=== PATIENT | female | born 1950 | race Caucasian/White ===

== ENCOUNTER → 2017-01-26 | Outpatient (CLI) | payer BC ==
[2015-04-12 16:13] VITALS: BP 130/88
[~2017-01-26] MED LIST: CRESTOR40 MG PO; GABA300S PO; LOSA25TA PO; [UNRECOGNIZED DRUG - CODE] MC
--- NOTE | 2017-01-26 12:45 | RAD ---
CT of the chest without contrast, 01/26/2017: History: Pulmonary fibrosis Multidetector CT imaging was performed in the supine position in inspiration and expiration. Routine high-resolution reconstructions were produced. There is mild calcific plaquing of the thoracic aorta and its branches including the coronary arteries. The thoracic aorta is of normal caliber. Several small mediastinal lymph nodes are present without evidence of pathologic enlargement. Densities at the GE junction level are compatible with the history of previous hiatal hernia surgery. The inspiration views demonstrate scattered coarse linear opacities in both lungs compatible with scars. These are most prominent in the lung bases in the periphery of the lungs. No pulmonary nodularity or mass is evident. No bronchiectasis is seen. No air trapping is evident on the expiration views. There is no evidence of pleural fluid. IMPRESSION: 1. Mild scattered bilateral parenchymal scars. 2. Coronary artery disease. 3. No acute abnormality is detected. PQRS Compliance Statement: One or more of the following individualized dose reduction techniques were utilized for this examination: 1. Automated exposure control 2. Adjustment of the mA and/or kV according to patient size 3. Use of iterative reconstruction technique
== END | disposition home or self-care (01) ==
LOC: CT 08:57
DX: J84.10 Pulmonary fibrosis, unspecified (principal); J98.4 Other disorders of lung; I70.0 Atherosclerosis of aorta; I25.10 Atherosclerotic heart disease of native coronary artery without angina pectoris
CPT/HCPCS: 71250

== ENCOUNTER → 2017-03-06 | Outpatient (CLI) | payer BC ==
[2015-04-12 16:13] VITALS: BP 130/88
--- NOTE | 2017-03-06 18:37 | RAD ---
CT maxillofacial without contrast History: Sinus infection facial fullness and pressure in eyes Axial helical images of the face including paranasal sinuses orbits and mandible were obtained without contrast. Axial, sagittal and coronal reconstruction was performed. The nasal septum is moderately deviated to the left. The ostiomeatal complexes are narrow but patent. The paranasal sinuses are clear. The visualized osseous structures appear intact. The orbits appear normal. Impression: No acute findings. PQRS Compliance Statement: One or more of the following individualized dose reduction techniques were utilized for this examination: 1. Automated exposure control 2. Adjustment of the mA and/or kV according to patient size 3. Use of iterative reconstruction technique Electronically signed by: Tr Quintero III, MD (03/06/2017 6:34 PM) [facility]
== END | disposition home or self-care (01) ==
LOC: CT 16:58
PROVIDERS: ATTEND Nurse Practitioner Family
DX: J32.8 Other chronic sinusitis (principal); J34.2 Deviated nasal septum
CPT/HCPCS: 70486

== ENCOUNTER 2017-05-27 10:47 | Emergency (ER) | payer OTHER, BC ==
--- NOTE | 2017-05-27 11:49 | RAD ---
3 view right rib detail series and PA view chest x-ray History: Fell on the right side on May 26, 2017 with right-sided rib pain. Comparison: Chest x-ray dated December 16, 2015. Findings: No acute right rib cage fracture is evident. Chronic scarring of the left lung base is seen. No acute lung infiltrate or pleural effusion or pulmonary edema or pneumothorax is seen. The heart size and pulmonary vasculature and mediastinum and both jerry are stable. IMPRESSION: No acute right rib fracture.
--- NOTE | 2017-05-27 12:00 | PHYS DOC ---
Past History Past Medical History: Asthma, Other Past Surgical History: Hysterectomy, Other Alcohol Use: None Drug Use: None Adult General Chief Complaint Chief Complaint: MECHANICAL FALL HPI HPI 66-year-old female patient states she had an accidental fall from a standing position while visiting her at hospital yesterday and injured her right side of chest wall without loss of consciousness and other injuries. Patient rated her pain moderate and states she doesn't want to take pain medication. Patient states hospital staff recommended she is coming to ER for evaluation. Patient denies fever and chills, shortness of breath, focal neuro deficit, headache, abdominal pain. Review of Systems Review of Systems Constitutional: Denies fever or chills [] Eyes: Denies change in visual acuity, redness, or eye pain [] HENT: Denies nasal congestion or sore throat [] Respiratory: Denies cough or shortness of breath [] Cardiovascular: No additional information not addressed in HPI [] GI: Denies abdominal pain, nausea, vomiting, bloody stools or diarrhea [] : Denies dysuria or hematuria [] Musculoskeletal: Denies back pain or joint pain Integument: Denies rash or skin lesions [] Neurologic: Denies headache, focal weakness or sensory changes [] Endocrine: Denies polyuria or polydipsia [] All other systems were reviewed and found to be within normal limits, except as documented in this note. Allergies Allergies Allergies Coded Allergies Type Severity Reaction Last Updated Verified aspirin Allergy Severe 10/31/13 Yes Penicillins Allergy Mild 10/31/13 Yes tramadol Allergy Mild 10/31/13 Yes Uncoded Allergies Type Severity Reaction Last Updated Verified ERYTHRMYOCIN Allergy Unknown 12/17/14 Physical Exam Physical Exam Constitutional: Well developed, well nourished, mild distress, non-toxic appearance. [] HENT: Normocephalic, atraumatic, bilateral external ears normal, oropharynx moist, no oral exudates, nose normal. [] Eyes: PERRLA, EOMI, conjunctiva normal, no discharge. [] Neck: Normal range of motion, no tenderness, supple, no stridor. [] Cardiovascular:Heart rate regular rhythm, no murmur [] Lungs & Thorax: Bilateral breath sounds clear to auscultation , chest wall without deformity or crepitation or subcutaneous emphysema, mild right lateral chest wall tenderness without contusion or ecchymosis or breast injury[] Abdomen: Bowel sounds normal, soft, no tenderness, no masses, no pulsatile masses. [] Skin: Warm, dry, no erythema, no rash. [] Back: No tenderness, no CVA tenderness. [] Extremities: No tenderness, no cyanosis, no clubbing, ROM intact, no edema. [] Neurologic: Alert and oriented X 3, normal motor function, normal sensory function, no focal deficits noted. [] Psychologic: Affect normal, judgement normal, mood normal. [] Current Patient Data Vital Signs Vital Signs Date Time Temp Pulse Resp B/P (MAP) Pulse Ox O2 Delivery O2 Flow Rate FiO2 05/27/17 10:55 98.0 105 16 97 Room Air EKG EKG [] Radiology/Procedures Radiology/Procedures [] Course & Med Decision Making Course & Med Decision Making Pertinent Imaging studies reviewed. (See chart for details) Evaluation of patient in ER showed 66-year-old male patient with a fall yesterday and injury to right side of chest wall. Patient had unremarkable physical exam and x-ray of chest and right rib. Patient did not want to have pain medication in ER. Dragon Disclaimer Dragon Disclaimer This electronic medical record was generated, in whole or in part, using a voice recognition dictation system. Departure Departure: Impression: Primary Impression: Chest wall injury Additional Impression: Fall Disposition: HOME, SELF-CARE (At 1159) Condition: STABLE Referrals: HERNANDO HUSSEIN MD (PCP) Patient Instructions: Chest Wall Pain Additional Instructions: Apply ice on and affected area Follow-up with your primary care physician in 3-5 days Return to ER if not getting better Take Tylenol as needed for pain Problem Qualifiers BANDAR HOANG MD May 27, 2017 12:00
[2017-05-27 12:06] VITALS: BP 104/67
== END 2017-05-27 12:06 | disposition home or self-care (01) ==
LOC: ER 10:47
DX: S29.9XXA Unspecified injury of thorax, initial encounter (principal); J45.909 Unspecified asthma, uncomplicated; Z88.0 Allergy status to penicillin; Z88.6 Allergy status to analgesic agent; W19.XXXA Unspecified fall, initial encounter; Y93.89 Activity, other specified; Y99.8 Other external cause status; Y92.238 Other place in hospital as the place of occurrence of the external cause
CPT/HCPCS: 71101; 99284

== ENCOUNTER → 2017-07-27 | Outpatient (CLI) | payer BC ==
--- NOTE | 2017-07-27 13:45 | RAD ---
Chest, 2 views, 07/27/2017: HISTORY: Cough The heart size and pulmonary vascularity are normal. There is linear scarring in the left base. No acute infiltrate is seen. There is no evidence of pleural fluid. Mild spurring is present in the spine. IMPRESSION: No acute cardiopulmonary abnormality is detected. Electronically signed by: Ralph Elizabeth MD (07/27/2017 1:42 PM) [facility]
== END | disposition home or self-care (01) ==
LOC: DXRAD 11:23
PROVIDERS: ATTEND Physician Assistant
DX: R05 Cough (principal); E03.9 Hypothyroidism, unspecified
CPT/HCPCS: 71046

== ENCOUNTER → 2017-08-23 | Outpatient (CLI) | payer BC ==
--- NOTE | 2017-08-23 16:31 | RAD ---
Pelvis with left hip, 3 views, 08/23/2017: HISTORY: Hip pain No fracture or dislocation is identified. The hip joint spaces are fairly well preserved with only mild marginal spurring. There is mild degenerative change at the symphysis pubis.The periarticular soft tissues are unremarkable. IMPRESSION: No acute pelvic or left hip abnormality is detected. Electronically signed by: Ralph Elizabeth MD (08/23/2017 4:27 PM) [facility]
== END | disposition home or self-care (01) ==
LOC: DXRAD 11:00
PROVIDERS: ATTEND Nurse Practitioner Family
DX: M76.892 Other specified enthesopathies of left lower limb, excluding foot (principal)
CPT/HCPCS: 73502

== ENCOUNTER → 2017-09-13 | Outpatient (CLI) | payer BC ==
--- NOTE | 2017-09-13 12:23 | RAD ---
DATE: 09/13/2017 EXAM: MAMMO MAR SCREENING BILATERAL HISTORY: Routine screening COMPARISON: 03/18/2013, 04/16/2012, 04/11/2011 This study was interpreted with the benefit of Computerized Aided Detection (CAD). The breast parenchyma shows scattered fibroglandular densities. Breast parenchyma level B. FINDINGS: 2-D and 3-D tomosynthesis imaging was performed in CC and MLO projections. In the medial aspect of the left breast there is a cluster of microcalcifications which contains 2 breast biopsy markers. On the previous study there was a low density peanut shaped lesion in this region which probably represented an oil cyst or area of fat necrosis which has been biopsied in the interval. Correlation with the previous biopsy results is suggested. There are couple of other small smooth rounded nodules in the left breast which demonstrate rim-like calcifications compatible with small oil cysts. There are additional small smooth nodules in the lateral aspects of both breasts which have a benign appearance and probably represent lymph nodes or fibroadenomas. These are better defined on the current 3-D images compared to the old 2-D images. Multiple bilateral smooth nodule such as this tend to be benign. No spiculated mass or architectural distortion is seen. IMPRESSION: Probably benign bilateral breast nodules and post biopsy change on the left as described above. Follow-up bilateral 3-D mammography in 6 months and then at yearly intervals is suggested to confirm stability. BI-RADS CATEGORY: 3 PROBABLY BENIGN FINDING(S)-SHORT INTERVAL FOLLOW-UP SUGGESTED RECOMMENDED FOLLOW-UP: 6M 6 MONTH FOLLOW-UP PQRS compliance statement: Patient information was entered into a reminder system with a target due date for the next mammogram. Mammography is a sensitive method for finding small breast cancers, but it does not detect them all and is not a substitute for careful clinical examination. A negative mammogram does not negate a clinically suspicious finding and should not result in delay in biopsying a clinically suspicious abnormality. "Our facility is accredited by the [employer] Mammography Program."
== END | disposition home or self-care (01) ==
LOC: MAMMO 11:09
PROVIDERS: ATTEND Physician Assistant
DX: Z12.31 Encounter for screening mammogram for malignant neoplasm of breast (principal); E03.9 Hypothyroidism, unspecified; J18.9 Pneumonia, unspecified organism
CPT/HCPCS: 77063; 77067

== ENCOUNTER → 2017-10-19 | Outpatient (CLI) | payer BC ==
--- NOTE | 2017-10-19 17:12 | RAD ---
PQRS Compliance Statement: One or more of the following individualized dose reduction techniques were utilized for this examination: 1. Automated exposure control 2. Adjustment of the mA and/or kV according to patient size 3. Use of iterative reconstruction technique CT MAXILLOFACIAL WO CONTRAST Clinical Indication: CHRONIC SINUSITIS. PT STATES SHE WAS BORN WITH NO SINUS'S AND AT 18 SHE HAD SURG TO GET SOME HAD ANOTHER SINUS SURG 8 YEARS AGO Comparison: CT facial bones without contrast, March 06, 2017. TECHNIQUE: Helical CT imaging of the facial bones is performed without IV contrast. Findings: The paranasal sinuses are aerated and without mucosal thickening or air-fluid level. Mild leftward deviation of the bony nasal septum. The ostiomeatal complexes are narrow but patent. The mastoid air cells are aerated. External auditory canals are patent. Visualized brain without obvious midline shift or mass effect. The globes and orbits are intact. IMPRESSION: Ostiomeatal complexes are patent. Electronically signed by: Sidney Card MD (10/19/2017 5:08 PM) [id number]
== END | disposition home or self-care (01) ==
LOC: CT 15:00
PROVIDERS: ATTEND Family Medicine
DX: J32.0 Chronic maxillary sinusitis (principal); J34.2 Deviated nasal septum; E03.9 Hypothyroidism, unspecified; K21.9 Gastro-esophageal reflux disease without esophagitis; I50.9 Heart failure, unspecified; I25.10 Atherosclerotic heart disease of native coronary artery without angina pectoris; E66.9 Obesity, unspecified
CPT/HCPCS: 70486

== ENCOUNTER → 2017-10-27 | Outpatient (CLI) | payer BC ==
[~2017-10-27] MED LIST changes: +IOHEXOL 300 MG/ML 75 ML VIAL. IV ONE; +IOHEXOL 300 MG/ML 75 ML VIAL. ONE
--- NOTE | 2017-10-27 10:56 | RAD ---
Chest CTA History: Elevated d-dimer Technique: After bolus of intravenous contrast, CT imaging was performed of the chest. Multiplanar reconstruction images to include MIP reconstruction images are submitted. Exposure: One or more of the following individualized dose reduction techniques were utilized for this examination: 1. Automated exposure control 2. Adjustment of the mA and/or kV according to patient size 3. Use of iterative reconstruction technique. Contrast: 75 cc Omnipaque 300 Comparison: April 12, 2015 Findings: [ No pulmonary embolism is identified. There is coronary calcification. Thoracic aortic caliber is within normal limits, cannot accurately evaluate for dissection flap on this exam as not well opacified with contrast. Heart is enlarged. No significantly enlarged nodes are identified of the chest. There is some mild atelectasis bilaterally. There is mild the distention number distal esophagus. There is multilevel thoracic degenerative disc disease and spondylosis greater inferiorly. Impression: 1. No pulmonary embolism is identified. 2. There is coronary calcification. Heart is enlarged. Electronically signed by: Kenny Newby MD (10/27/2017 10:53 AM) [id number]
== END | disposition home or self-care (01) ==
LOC: CT 10:05
PROVIDERS: ATTEND Family Medicine
DX: I25.10 Atherosclerotic heart disease of native coronary artery without angina pectoris (principal); I51.7 Cardiomegaly; M51.34 Other intervertebral disc degeneration, thoracic region; M47.894 Other spondylosis, thoracic region; J98.11 Atelectasis; J45.31 Mild persistent asthma with (acute) exacerbation; E03.9 Hypothyroidism, unspecified; E87.6 Hypokalemia; K21.9 Gastro-esophageal reflux disease without esophagitis; Z68.35 Body mass index [BMI] 35.0-35.9, adult
CPT/HCPCS: 71275; Q9967

== ENCOUNTER → 2018-01-17 | Outpatient (CLI) | payer MEDICARE, BC ==
[~2018-01-17] MED LIST changes: -IOHEXOL 300 MG/ML 75 ML VIAL. IV ONE; -IOHEXOL 300 MG/ML 75 ML VIAL. ONE
--- NOTE | 2018-01-17 10:15 | RAD ---
CT head without intravenous contrast History: Headache. Comparison: CT head September 24, 2015. Technique: Axial images are obtained of the head from the skull base through the vertex without IV contrast. Exposure: One or more of the following individualized dose reduction techniques were utilized for this examination: 1. Automated exposure control 2. Adjustment of the mA and/or kV according to patient size 3. Use of iterative reconstruction technique Findings: The ventricles are appropriate in size, shape, and location for the patient's age. No obvious intracranial mass, mass-effect, midline shift, hemorrhage or obvious acute infarction is identified. Basilar cisterns are patent. Bone windows demonstrate no acute calvarial abnormality. The visualized paranasal sinuses appear clear. Impression: No acute intracranial process. Please note that CT can be relatively insensitive to acute ischemic infarction for up to 24 hours after symptom onset. Electronically signed by: Andreas Gordon MD (01/17/2018 10:12 AM) [id number]
== END | disposition home or self-care (01) ==
LOC: CT 08:59
PROVIDERS: ATTEND Family Medicine
DX: R51 Headache (principal)
CPT/HCPCS: 70450

== ENCOUNTER 2018-09-16 14:52 | Observation (INO) | payer MEDICARE, BC ==
[~2018-09-16] VITALS: Ht 157.5 cm; Wt 87.5 kg
[2018-09-16 15:26] LABS: BASO # 0.1 x10^3/uL (0.0-0.2); BASO % 1 % (0-3); EOS # 0.3 x10^3/uL (0.0-0.7); EOS % 3 % (0-3); HEMATOCRIT 43.4 % (36.0-47.0); HEMOGLOBIN 14.6 g/dL (12.0-15.5); LYMPH # 2.6 x10^3/uL (1.0-4.8); LYMPH % 32 % (24-48); MEAN CORPUSCULAR HEMOGLOBIN 31 pg (25-35); MEAN CORPUSCULAR HGB CONC 34 g/dL (31-37); MEAN CORPUSCULAR VOLUME 91 fL (79-100); MONO # 0.7 x10^3/uL (0.0-1.1); MONO % 9 % (0-9); NEUT # 4.5 x10^3uL (1.8-7.7); NEUT % 55 % (31-73); PLATELET COUNT 332 x10^3/uL (140-400); RED BLOOD COUNT 4.75 x10^6/uL (3.50-5.40); WHITE BLOOD COUNT 8.2 x10^3/uL (4.0-11.0)
--- NOTE | 2018-09-16 15:32 | PHYS DOC ---
Past History Past Medical History: Asthma, Hypertension, Other Past Surgical History: Hysterectomy, Other Alcohol Use: None Drug Use: None Adult General Chief Complaint Chief Complaint: CHEST PAIN HPI HPI 67-year-old female presents with 2 day history of chest pain. The pain is on the left side of her chest and radiates straight through to her back. Pain has been intermittent the last couple of days. At its worst it is been a 4 out of 10. It is currently a 4 out of 10. The patient cannot tolerate aspirin as she is allergic. The patient states that the pain started while she was walking around. It does seem to be worse with exertion and improves with rest. She has shortness of breath but denies diaphoresis. She had a stress test in 2016 and says "it wasn't too bad". Patient denies fever or chills. She does admit that she slept a lot yesterday because she "didn't feel well". Review of Systems Review of Systems Constitutional: Denies fever or chills [] Eyes: Denies change in visual acuity, redness, or eye pain [] HENT: Denies nasal congestion or sore throat [] Respiratory: shortness of breath [] Cardiovascular: No additional information not addressed in HPI [] GI: Denies abdominal pain, nausea, vomiting, bloody stools or diarrhea [] : Denies dysuria or hematuria [] Musculoskeletal: Denies back pain or joint pain [] Integument: Denies rash or skin lesions [] Neurologic: Denies headache, focal weakness or sensory changes [] Endocrine: Denies polyuria or polydipsia [] All other systems were reviewed and found to be within normal limits, except as documented in this note. Allergies Allergies Allergies Coded Allergies Type Severity Reaction Last Updated Verified aspirin Allergy Severe 10/31/13 Yes Penicillins Allergy Mild 10/31/13 Yes tramadol Allergy Mild 10/31/13 Yes Uncoded Allergies Type Severity Reaction Last Updated Verified ERYTHRMYOCIN Allergy Unknown 12/17/14 Physical Exam Physical Exam Constitutional: Well developed, well nourished, no acute distress, non-toxic appearance. [] HENT: Normocephalic, atraumatic, bilateral external ears normal, oropharynx moist, no oral exudates, nose normal. [] Eyes: PERRLA, EOMI, conjunctiva normal, no discharge. [] Neck: Normal range of motion, no tenderness, supple, no stridor. [] Cardiovascular:Heart rate regular rhythm, no murmur [] Lungs & Thorax: Bilateral breath sounds clear to auscultation [] Abdomen: Bowel sounds normal, soft, no tenderness, no masses, no pulsatile masses. [] Skin: Warm, dry, no erythema, no rash. [] Back: No tenderness, no CVA tenderness. [] Extremities: No tenderness, no cyanosis, no clubbing, ROM intact, no edema. [] Neurologic: Alert and oriented X 3, normal motor function, normal sensory function, no focal deficits noted. [] Psychologic: Affect normal, judgement normal, mood normal. [] Current Patient Data Vital Signs Vital Signs Date Time Temp Pulse Resp B/P (MAP) Pulse Ox O2 Delivery O2 Flow Rate FiO2 09/16/18 15:02 98.1 60 18 96 Room Air EKG EKG Sinus rhythm, rate 54, leftward axis, no ST elevations or depressions.[] Radiology/Procedures Radiology/Procedures [] Impressions: CHEST PA LATERAL CLINICAL INDICATION: Chest pain. COMPARISON: 07/27/2017 FINDINGS: Heart is normal in size. Scarring is seen in the left lung base and lingula. No focal consolidation. No pneumothorax or large pleural effusion. Visualized bony thorax within normal limits. IMPRESSION: Chronic scarring in the left lung base and lingula. No acute pulmonary process. Electronically signed by: Venkat Ng DO (09/16/2018 3:35 PM) [facility] DICTATED AND SIGNED BY: VENKAT NG DO DATE: 09/16/18 [id number] CC: HERNANDO HUSSEIN MD; ANNEMARIE LINDSAY DO ~ Course & Med Decision Making Course & Med Decision Making Pertinent Labs and Imaging studies reviewed. (See chart for details) The patient's chest x-ray is negative for acute findings. Her labs are unremarkable except for an elevated creatinine of 1.7. We will give her a liter of normal saline. Her troponin is negative. Her HEART score is 5. I would like to admit the patient for chest pain rule out. I discussed the patient with Dr. Epstein and he has accepted the patient for admission. The patient is in agreement with this plan. [] Dragon Disclaimer Dragon Disclaimer This electronic medical record was generated, in whole or in part, using a voice recognition dictation system. Departure Departure: Impression: Primary Impression: Chest pain Disposition: 09 ADMITTED INPATIENT Admitting Physician: Daquan Epstein Condition: STABLE Referrals: HERNANDO HUSSEIN MD (PCP) Problem Qualifiers Primary Impression: Chest pain Chest pain type: precordial pain Qualified Codes: R07.2 - Precordial pain ANNEMARIE LINDSAY DO Sep 16, 2018 15:32
[2018-09-16 15:35] LABS: ALBUMIN 3.9 g/dL (3.4-5.0); CALCIUM 9.3 mg/dL (8.5-10.1); CREATININE 1.7 mg/dL (0.6-1.0); GFR 30.2; POTASSIUM 4.1 mmol/L (3.5-5.1); TOTAL BILIRUBIN 0.3 mg/dL (0.2-1.0); TOTAL PROTEIN 7.9 g/dL (6.4-8.2)
--- NOTE | 2018-09-16 15:39 | RAD ---
CHEST PA LATERAL CLINICAL INDICATION: Chest pain. COMPARISON: 07/27/2017 FINDINGS: Heart is normal in size. Scarring is seen in the left lung base and lingula. No focal consolidation. No pneumothorax or large pleural effusion. Visualized bony thorax within normal limits. IMPRESSION: Chronic scarring in the left lung base and lingula. No acute pulmonary process. Electronically signed by: Venkat Ng DO (09/16/2018 3:35 PM) [facility]
[2018-09-16] MEDS ORDERED: IV NORMAL SALINE 1,000ML 1,000 ML IV ONE (16:30)
--- NOTE | 2018-09-16 17:04 | EKG ---
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
[2018-09-16 18:28] VITALS: BP 144/80
[2018-09-16] MEDS ORDERED: RIBO50TA PO (19:44)
[2018-09-16] MEDS ORDERED: METO50TA6 PO (19:44)
[2018-09-16] MEDS ORDERED: LEVO75TA5 PO (19:44)
[2018-09-16] MEDS ORDERED: OMEP20CA10 PO (19:44)
[2018-09-16] MEDS ORDERED: ROSU20TA28 PO (19:44)
[2018-09-16] MEDS ORDERED: GABA300C8 PO (19:44)
[2018-09-16] MEDS ORDERED: GLUC1CAP41 PO (19:44)
[2018-09-16] MEDS ORDERED: MULT1TAB52 PO (19:44)
[2018-09-16] MEDS ORDERED: TRIA1CAP3 PO (19:44)
[2018-09-16] MEDS ORDERED: CALC-71 PO (19:44)
[2018-09-16] MEDS: METOPROLOL TART IMMED RELEASE 50 MG TABLET PO SCH (20:56)
[2018-09-16] MEDS ORDERED: GABAPENTIN 300 MG CAPSULE. PO SCH (21:00)
[2018-09-16] MEDS ORDERED: ATORVASTATIN CALCIUM 20 MG TABLET PO SCH (21:00)
[2018-09-16 23:02] VITALS: BP 103/68
[2018-09-17 03:13] LABS: BASO # 0.1 x10^3/uL (0.0-0.2); BASO % 1 % (0-3); EOS # 0.3 x10^3/uL (0.0-0.7); EOS % 5 % (0-3); HEMATOCRIT 37.7 % (36.0-47.0); HEMOGLOBIN 12.9 g/dL (12.0-15.5); LYMPH # 2.5 x10^3/uL (1.0-4.8); LYMPH % 40 % (24-48); MEAN CORPUSCULAR HEMOGLOBIN 31 pg (25-35); MEAN CORPUSCULAR HGB CONC 34 g/dL (31-37); MEAN CORPUSCULAR VOLUME 91 fL (79-100); MONO # 0.6 x10^3/uL (0.0-1.1); MONO % 10 % (0-9); NEUT # 2.8 x10^3uL (1.8-7.7); NEUT % 44 % (31-73); PLATELET COUNT 279 x10^3/uL (140-400); RED BLOOD COUNT 4.16 x10^6/uL (3.50-5.40); WHITE BLOOD COUNT 6.4 x10^3/uL (4.0-11.0)
[2018-09-17 03:41] LABS: ALBUMIN 3.3 g/dL (3.4-5.0); ALBUMIN/GLOBULIN RATIO 0.9 (1.0-1.7); CALCIUM 8.8 mg/dL (8.5-10.1); CREATININE 1.2 mg/dL (0.6-1.0); GFR 45.1; POTASSIUM 3.9 mmol/L (3.5-5.1); TOTAL BILIRUBIN 0.3 mg/dL (0.2-1.0); TOTAL PROTEIN 6.8 g/dL (6.4-8.2)
[2018-09-17 05:40] VITALS: BP 102/65
[2018-09-17] MEDS ORDERED: LEVOTHYROXINE 75 MCG TABLET PO SCH (06:00)
[2018-09-17] MEDS ORDERED: PANTOPRAZOLE 40 MG TABLET. PO SCH (07:30)
[2018-09-17] MEDS ORDERED: CALCIUM CARB/VIT D3 500/200 TABLET PO SCH (08:00)
[2018-09-17] MEDS: METOPROLOL TART IMMED RELEASE 50 MG TABLET PO SCH (08:10)
[2018-09-17] MEDS ORDERED: RIBOFLAVIN 50 MG PO SCH (09:00)
[2018-09-17] MEDS ORDERED: MULTIVITAMIN with MINERAL TABLET. PO SCH (09:00)
[2018-09-17] MEDS ORDERED: [UNRECOGNIZED DRUG - OTHER] PO SCH (09:00)
[2018-09-17] MEDS ORDERED: TRIAMTERENE/HCTZ 37.5/25MG TABLET. PO SCH (09:00)
[2018-09-17 11:17] VITALS: BP 114/73
[2018-09-17 15:49] VITALS: BP 110/68
--- NOTE | 2018-09-17 16:17 | HP ---
ADMIT DATE: HISTORY OF PRESENT ILLNESS: The patient is a 67-year-old female patient who came to the Emergency Room complaining of chest pain, mostly in the left side of her chest radiating straight to her back and also left arm that has been intermittent over the last couple of days. She said that the beginning, it was 7/10 and has been around 4/10. It was associated with nausea, shortness of breath, but no vomiting, no diaphoresis. The pain is worse with exertion and improves with rest and actually started while she was walking around. She does complain of shortness of breath. She had had a stress test in 2016 that was negative. She did have some cough with scanty whitish sputum. Denied any hemoptysis and she was evaluated in the Emergency Room, has had lab work which showed a normal white cell count. Her first set of cardiac enzyme showed troponin to be less than 0.017. Her EKG showed that she was in sinus rhythm with a heart rate of 54 with leftward axis and no ST segment elevation or depression and will be admitted to do 2 more sets of cardiac enzyme, check her lipid profile as well as to consult the correctional facility nurse. PAST MEDICAL HISTORY: Significant for pulmonary hypertension, pulmonary fibrosis, hypertension, hyperlipidemia, hypothyroidism and migraine headaches, chronic sinusitis. PAST SURGICAL HISTORY: Significant for surgery for cleft lip and palate, rhinoplasty x 2, vaginal hysterectomy, thyroidectomy, surgery for meniscal tear on both knees, thoracotomy for removal of left cyst, cyst from the left hemothorax. She also had colonoscopy and polypectomy. ALLERGIES: She is allergic to PENICILLIN, ASPIRIN, ERYTHROMYCIN and TRAMADOL. MEDICATIONS: She is currently on following medications: She is on Crestor 20 mg at bedtime, metoprolol tartrate 50 mg twice a day, gabapentin 900 mg at bedtime, calcium carbonate with vitamin D 1 tablet daily. She is on triamterene/hydrochlorothiazide 37.5/25 one capsule daily, omeprazole 20 mg daily, levothyroxine sodium 75 mcg daily, riboflavin 50 mg daily, multivitamin 1 tablet once a day, glucosamine/chondroitin sulfate 1 capsule once a day. FAMILY HISTORY: She has 3 sisters and 1 brother, all younger. Two of her sisters have diabetes. All of them have kidney stones. Her father at age of 52 in a motor-vehicle accident and mother at age of 71 secondary to myocardial infarction. She is known to have diabetes, end-stage renal disease, thyroid, colon and breast cancer. SOCIAL HISTORY: She is , has a son and 2 daughters. She never smoked, does not drink alcohol. She works for [employer] for 25 years. REVIEW OF SYSTEMS: The patient denied any blurring of vision, cataract, glaucoma or macular degeneration. Denied any earache, tinnitus, or sensorineural deafness. She has chronic sinusitis and chronic nasal stuffiness. Denied any sore throat, sore tongue, toothache, hoarseness of voice or difficulty swallowing. Did complain of nausea, but no vomiting, no diarrhea or constipation. Denied any hematemesis, melena or hematochezia. Denied any dysuria, frequency or hematuria. Did complain left-sided chest pain, cough with scanty white sputum as well as shortness of breath. Denied any orthopnea or paroxysmal nocturnal dyspnea. Denied any chills, rigors or fever. PHYSICAL EXAMINATION: GENERAL: On arrival to the Emergency Room, she looked well and was clearly in no apparent respiratory distress. No pallor, jaundice, cyanosis, or thyromegaly. No jugular venous distension. No limb edema. VITAL SIGNS: Her heart rate was 60, blood pressure was 126/62, temperature was 98.1, respiratory rate was 18 and oxygen saturation was 96%. HEAD, EYES, EARS, NOSE AND THROAT: Showed normocephalic, atraumatic. NECK: Supple. HEART: Showed normal first and second heart sounds. No gallop, rub or murmur. CHEST: Clear to auscultation. No crepitation or rhonchi. ABDOMEN: Distended, soft, nontender. No guarding or rigidity. No organomegaly. All hernial orifice intact. Bowel sounds normal. NEUROLOGIC: She is awake, alert, responding appropriately. All cranial nerves intact. EXTREMITIES: She moves extremities without difficulty. She ambulates without assistance or assistive devices. LABORATORY DATA: Her lab work on admission showed a white cell count of 8200, hemoglobin 14.6, hematocrit 43, MCV 91, and platelet count of 332,000 with normal manual differential. Her chemistry showed a serum sodium 142, potassium 4.1, chloride 104, bicarbonate 28, anion gap of 10, BUN 26, creatinine 1.7, estimated GFR was 30 mL per minute. Her glucose was 93, calcium was 9.3. Total bilirubin, AST, ALT, alkaline phosphatase were normal. Her total protein was 7.9, albumin was 3.9. Her first set of cardiac enzymes showed troponin to be less than 0.017. Her EKG showed that she was in sinus rhythm and her chest x-ray showed that the heart size is normal. Scarring is seen in the left lung base and lingula. No focal consolidation or pneumothorax or large pleural effusion. Visualized bony thorax within normal limits. PLAN: The patient was admitted to do 2 more sets of cardiac enzyme, fasting lipid profile and consult the correctional facility nurse for further evaluation and treatment. CHRISTINE RAMIREZ MD DR: CHARI/maddison JOB#: [id number] / [id number]
--- NOTE | 2018-09-17 16:40 | CARD ---
MR#: [id number] Date of Study: 09/17/2018 Ordering Physician: AGNIESZKA ONTIVEROS, Referring Physician: CHRISTINE RAMIREZ Tech: Lela Floyd RDCS APPROVED REPORT EXAM: Two-dimensional and M-mode echocardiogram with Doppler and color Doppler. Other Information Quality : Good Technically limited study due to body habitus. INDICATION Chest Pain 2D DIMENSIONS RVDd3.8 (2.9-3.5cm)Left Atrium(2D)3.9 (1.6-4.0cm) IVSd0.9 (0.7-1.1cm)Aortic Root(2D)3.0 (2.0-3.7cm) LVDd4.7 (3.9-5.9cm)LVOT Diameter1.9 (1.8-2.4cm) PWd0.8 (0.7-1.1cm)LVDs2.8 (2.5-4.0cm) FS (%) 39.2 %SV69.8 ml LVEF(%)60.0 (>50%) Aortic Valve AoV Peak Dashawn.171.6cm/sAoV VTI34.8cm AO Peak GR.11.8mmHgAO Mean GR.5mmHg ALLY (VTI)1.59li9JO P 1/2 Yjfq079fq Mitral Valve MV E Jcllqmrr26.6cm/sMV DECEL LISZ693lg MV A Qvibrxqq98.3cm/sE/A Ratio0.9 Tricuspid Valve TR P. Wgzsbowb482lc/sRAP IYGXUVPE3dlCg TR Peak Gr.72bhTlOXDD92ikTz LEFT VENTRICLE The left ventricle is normal size. There is normal left ventricular wall thickness. The left ventricu lar systolic function is normal and the ejection fraction is within normal range. EF 55% There is nor mal LV segmental wall motion. Transmitral Doppler flow pattern is Grade I-abnormal relaxation pattern . RIGHT VENTRICLE The right ventricle is mildly to moderately dilated. The right ventricular systolic function is deb l. ATRIA The left atrium size is normal. The right atrium is mildly dilated. The interatrial septum is intact with no evidence for an atrial septal defect or patent foramen ovale as noted on 2-D or Doppler imagi ng. AORTIC VALVE The aortic valve is calcified but opens well. Doppler and Color Flow revealed trace aortic regurgitat ion. There is no significant aortic valvular stenosis. MITRAL VALVE The mitral valve is calcified but opens well. Mitral annular calcification is mild. There is no evide nce of mitral valve prolapse. There is no mitral valve stenosis. Doppler and Color Flow revealed no m itral valve regurgitation noted. TRICUSPID VALVE The tricuspid valve is normal in structure and function. Doppler and Color Flow revealed trace tricus pid regurgitation. The PA pressure was estimated at 29 mmHg. There is no tricuspid valve stenosis. PULMONIC VALVE The pulmonic valve is not well visualized. Doppler and Color Flow revealed no pulmonic valvular regur gitation. There is no pulmonic valvular stenosis. GREAT VESSELS The aortic root is normal in size. The ascending aorta is normal in size. The IVC was not visualized. PERICARDIAL EFFUSION There is no evidence of significant pericardial effusion. Critical Notification Critical Value: No <Conclusion> The left ventricular systolic function is normal and the ejection fraction is within normal range. EF 55% There is normal LV segmental wall motion. The right ventricle is mildly to moderately dilated. No significant pulmonary HTN Signed by : Agnieszka Ontiveros, Electronically Approved : 09/17/2018 16:40:35
--- NOTE | 2018-09-17 17:20 | PDOC ---
PROVIDER NOTE PROVIDER NOTE PROVIDER NOTE CARDIOLOGY PROGRESS NOTE: S: No acute events. No chest pain. O: VSS Normal cardiac exam. Lungs with some mild rhonchi. Labs reviewed. Tele unremarkable Echo wnl. A: 1. Tachycarrthymia - stable 2. Atypical chest pain - EKG, Trops and echo wnl. No significant pulm HTN 3. Pulm fibrosis. Plan: 1. She had a normal cath several years ago. CP is atypical. Given her risk factors, may benefit from outp stress. Defer to PCP and [facility]. Ok to DC today. Thanks. AGNIESZKA ONTIVEROS MD Sep 17, 2018 17:20
--- NOTE | 2018-09-17 21:32 | DS ---
DATE OF DISCHARGE: 09/17/2018 HISTORY OF PRESENT ILLNESS: The patient is a 67-year-old female patient who was admitted with chest pain, mostly in the left side of her chest radiating straight to her back and also the left arm that has been intermittent over the last couple of days. She said that at the beginning, it was 7/10, has been around 4-10. It was associated with nausea, shortness of breath, but no vomiting, no diaphoresis. The pain is worse with exertion and improves with rest, exercise, while she was walking around. She has had a stress test done about in 2015 that was negative. She did have some cough with scanty white sputum. Denied any hemoptysis. She has had 3 sets of cardiac enzymes that were negative. Her serum triglyceride was 137, total cholesterol 170, LDL was 101, VLDL was 27, HDL was 42 and ratio was 4. She has had an echocardiogram done, which basically showed that her left ventricular systolic function is normal, ejection fraction within normal range at 55%. She has normal left ventricular segmental wall motion. The right ventricle is mildly to moderately dilated. No significant pulmonary hypertension. The patient was discharged home as per Cardiology recommendation to follow up with her primary care physician. PHYSICAL EXAMINATION: GENERAL: When I examined her, she looked well and was clearly in no apparent respiratory distress. No pallor, jaundice, cyanosis, or thyromegaly. No jugular venous distension. No limb edema. VITAL SIGNS: Her heart rate was 60, blood pressure was 110/68, temperature was 98, respiratory rate was 18, and oxygen saturation was 98%. The rest of clinical exam was stable. DISCHARGE MEDICATIONS: The patient was discharged home to continue on her calcium carbonate with vitamin D one tablet once a day, gabapentin 900 mg at bedtime, glucosamine chondroitin sulfate 1 capsule daily, levothyroxine sodium 75 mcg once a day, metoprolol tartrate 50 mg twice a day, multivitamin 1 tablet once a day, omeprazole 20 mg daily, riboflavin for vitamin B2 50 mg once a day, Crestor 20 mg at bedtime, triamterene/hydrochlorothiazide 37.5/25 one tablet once a day. FINAL DISCHARGE DIAGNOSES: Chest pain, myocardial infarction ruled out. She has multiple other medical problems including pulmonary hypertension, pulmonary fibrosis, hypertension, hyperlipidemia, hypothyroidism, migraine headache, and chronic sinusitis. CHRISTINE RAMIREZ MD DR: Cynthia JOB#: [id number] / [id number]
== END 2018-09-17 17:10 | disposition home or self-care (01) ==
LOC: ER 14:52 → 1 SOUTH 17:15 → INTOOBSV 17:15
PROVIDERS: ADMIT Internal Medicine; ATTEND Internal Medicine
DX: R07.89 Other chest pain (principal); J45.909 Unspecified asthma, uncomplicated; Z90.710 Acquired absence of both cervix and uterus; J98.4 Other disorders of lung; I10 Essential (primary) hypertension; E78.5 Hyperlipidemia, unspecified; E89.0 Postprocedural hypothyroidism; G43.909 Migraine, unspecified, not intractable, without status migrainosus; I27.20 Pulmonary hypertension, unspecified; Z87.730 Personal history of (corrected) cleft lip and palate; Z83.3 Family history of diabetes mellitus; Z82.49 Family history of ischemic heart disease and other diseases of the circulatory system; Z80.3 Family history of malignant neoplasm of breast; J84.10 Pulmonary fibrosis, unspecified; J32.9 Chronic sinusitis, unspecified
CPT/HCPCS: 36415; 71046; 80053; 80061; 84484; 85025; 93005; 93306; 99284; G0378; 96360; G0379; 99285-25; J7030

== ENCOUNTER → 2019-06-05 | Outpatient (CLI) | payer MEDICARE, BC ==
[~2019-06-05] MED LIST changes: +CALC-71 PO; +GABA300C8 PO; +GLUC1CAP41 PO; +LEVO75TA5 PO; +METO50TA6 PO; +MULT1TAB52 PO; +OMEP20CA16 PO; +RIBO50TA PO; +ROSU20TA28 PO; +TRIA1CAP3 PO
--- NOTE | 2019-06-05 09:46 | RAD ---
Examination: CT MAXILLOFACIAL WO CONTRAST History: Chronic sinusitis Comparison/Correlation: None Findings: Axial images of the paranasal sinuses were obtained. Sagittal and coronal reformatted images were provided. Partial opacification of the maxillary ostium bilaterally is present but minimal. No fluid levels within the paranasal sinuses. No mucous retention cyst. Small left joyce bullosa is present. The left middle turbinate is somewhat diminutive. Orbital bony structures are unremarkable. Impression: Minimal opacification of the maxillary sinus ostium bilaterally. No significant chronic sinusitis. No acute sinusitis. PQRS Compliance Statement: One or more of the following individualized dose reduction techniques were utilized for this examination: 1. Automated exposure control 2. Adjustment of the mA and/or kV according to patient size 3. Use of iterative reconstruction technique Electronically signed by: Ronnie Lambert MD (06/05/2019 9:43 AM) [id number]
== END | disposition home or self-care (01) ==
LOC: CT 08:39
PROVIDERS: ATTEND Physician Assistant
DX: J32.9 Chronic sinusitis, unspecified (principal)
CPT/HCPCS: 70486

== ENCOUNTER 2019-09-08 18:14 | Emergency (ER) | payer MEDICARE, BC ==
[~2019-09-08] VITALS: Ht 157.5 cm; Wt 89.0 kg
[~2019-09-08 18:14] MED LIST changes: +MULT-445 PO; -MULT1TAB52 PO
--- NOTE | 2019-09-08 18:17 | PHYS DOC ---
Past History Past Medical History: Asthma, Hypertension, Other Past Surgical History: Hysterectomy, Other Alcohol Use: None Drug Use: None General Adult HPI: HPI: ".. I was mowing yesterday.. and I got a tick bite on my stomach.. I thought I got it pull off.. but today the area is all red and swollen.. and starting to hurt..." Patient is a 68 year old female who presents with complaints of a tick bite to Lt. lower abdomen. Area has 4 cm area of erythema and center area with imbedded tick head. Area cleaned with Betadine. Tick head removed with 15 blade point. Dressing with Bactracin. Pt. started on Doxycycline. To monitor for spread of cellulitis. Patient denies any history of recent travel outside [facility]. Denies any specific ill contacts. Patient denies any history immunosuppression. Patient states her tetanus vaccination is up-to-date. The pt. follows with Dr. Hussein. Review of Systems: Review of Systems: Constitutional: Denies fever or chills Eyes: Denies change in visual acuity HENT: Denies nasal congestion or sore throat Respiratory: Denies cough or shortness of breath Cardiovascular: Denies chest pain or edema GI: Denies abdominal pain, nausea, vomiting, bloody stools or diarrhea : Denies dysuria Musculoskeletal: Denies back pain or joint pain Integument: Denies rash. Patient complains of infected tick bite Neurologic: Denies headache, focal weakness or sensory changes Endocrine: Denies polyuria or polydipsia Lymphatic: Denies swollen glands Psychiatric: Denies depression or anxiety Heart Score: Risk Factors: Risk Factors: DM, Current or recent (<one month) smoker, HTN, HLP, family history of CAD, obesity. Risk Scores: Score 0 - 3: 2.5% MACE over next 6 weeks - Discharge Home Score 4 - 6: 20.3% MACE over next 6 weeks - Admit for Clinical Observation Score 7 - 10: 72.7% MACE over next 6 weeks - Early Invasive Strategies Family History: Family History: Noncontributory to presentation Current Medications: Current Meds: See nursing for home meds Allergies: Allergies: Allergies Coded Allergies Type Severity Reaction Last Updated Verified aspirin Allergy Severe 10/31/13 Yes erythromycin base Allergy Intermediate 09/17/18 Yes Penicillins Allergy Mild 10/31/13 Yes tramadol Allergy Mild 10/31/13 Yes Physical Exam: PE: Constitutional: no acute distress, non-toxic appearance. [] HENT: Normocephalic, atraumatic, bilateral external ears normal, oropharynx moist, no oral exudates, nose normal. [] Eyes: PERRLA, EOMI, conjunctiva normal, no discharge. [] Neck: Normal range of motion, no tenderness, supple, no stridor. [] Cardiovascular:Heart rate regular rhythm, no murmur [] Lungs & Thorax: Bilateral breath sounds equal at apex on auscultation [] Abdomen: Bowel sounds normal, soft, no tenderness, no masses, no pulsatile masses. []. Patient does have a tick bite as per HPI with surrounding cellulitis. Old surgery scar. Mild obesity Skin: Warm, dry, no erythema, no rash. As above Back: No tenderness, no CVA tenderness. [] Extremities: No tenderness, no cyanosis, no clubbing, ROM intact, no edema. [] Neurologic: Alert and oriented X 3, normal motor function, normal sensory function, no focal deficits noted. [] Psychologic: Affect anxious, judgement normal, mood normal. [] EKG: EKG: [] Radiology/Procedures: Radiology/Procedures: [] Course & Med Decision Making: Course & Med Decision Making Pertinent Labs and Imaging studies reviewed. (See chart for details) Patient to use very warm salt compresses or Epson salt compresses 4 times a day to area of cellulitis and tick bite. Then massage area with Polysporin after compresses. Patient take doxycycline 100 twice a day for 7 days. Patient follow-up with Dr. Hussein. Patient return if any concerns. Patient warned that doxycycline may cause her to be sun sensitive. Patient return if any concerns Impression: 1. Tick bite 2. Cellulitis at tick bite [] Dragon Disclaimer: Dragon Disclaimer: This electronic medical record was generated, in whole or in part, using a voice recognition dictation system. Departure Departure: Disposition: 01 HOME/RESIDENCE PRIOR TO ADM Condition: STABLE Referrals: HERNANDO HUSSEIN MD (PCP) Scripts Doxycycline Hyclate (DOXYCYCLINE HYCLATE) 100 Mg Tablet.dr 1 TAB PO BID for cellulitis, #14 TAB Prov: HORTENCIA SHORT MD 09/08/19 Justification of Admission: Justification of Admission: Justification of Admission Dx: N/A Dragon Disclaimer This chart was dictated in whole or in part using Voice Recognition software in a busy, high-work load, and often noisy Emergency Department environment. It may contain unintended and wholly unrecognized errors or omissions. Dragon Disclaimer This chart was dictated in whole or in part using Voice Recognition software in a busy, high-work load, and often noisy Emergency Department environment. It may contain unintended and wholly unrecognized errors or omissions. HORTENCIA SHORT MD Sep 08, 2019 18:17
[2019-09-08 18:25] VITALS: BP 109/64
[2019-09-08] MEDS ORDERED: BACITRACIN ZINC TOPICAL OINT PACKET. TP ONE (18:45)
[2019-09-08] MEDS ORDERED: ONDANSETRON ODT 4 MG TAB.RAPDIS PO ONE (18:45)
[2019-09-08] MEDS ORDERED: DOXYCYCLINE HYCLATE 100 MG TABLET PO ONE (18:45)
[2019-09-08] MEDS ORDERED: SMZ/TMP 800/160MG TABLET. PO ONE (18:45)
[2019-09-08] MEDS ORDERED: DOXY-96 PO (18:47)
== END 2019-09-08 18:55 | disposition home or self-care (01) ==
LOC: ER 18:14
DX: S30.861A Insect bite (nonvenomous) of abdominal wall, initial encounter (principal); L03.311 Cellulitis of abdominal wall; I10 Essential (primary) hypertension; J45.909 Unspecified asthma, uncomplicated; Z88.6 Allergy status to analgesic agent; Z88.1 Allergy status to other antibiotic agents; Z88.0 Allergy status to penicillin; W57.XXXA Bitten or stung by nonvenomous insect and other nonvenomous arthropods, initial encounter; Y93.89 Activity, other specified; Y92.89 Other specified places as the place of occurrence of the external cause; Y99.8 Other external cause status
CPT/HCPCS: 10120; 99285; Q0162

== ENCOUNTER 2019-11-06 10:03 | Inpatient (IN) | payer MEDICARE, BC ==
[~2019-11-06] VITALS: Ht 157.5 cm; Wt 83.7 kg
[~2019-11-06 10:03] MED LIST changes: +DOXY-96 PO
[2019-11-06 10:26] LABS: BASO # 0.1 x10^3/uL (0.0-0.2); BASO % 1 % (0-3); EOS # 0.3 x10^3/uL (0.0-0.7); EOS % 4 % (0-3); HEMATOCRIT 42.6 % (36.0-47.0); HEMOGLOBIN 14.3 g/dL (12.0-15.5); LYMPH # 2.5 x10^3/uL (1.0-4.8); LYMPH % 39 % (24-48); MEAN CORPUSCULAR HEMOGLOBIN 31 pg (25-35); MEAN CORPUSCULAR HGB CONC 34 g/dL (31-37); MEAN CORPUSCULAR VOLUME 93 fL (79-100); MONO # 0.7 x10^3/uL (0.0-1.1); MONO % 11 % (0-9); NEUT % 46 % (31-73); PLATELET COUNT 291 x10^3/uL (140-400); RED BLOOD COUNT 4.56 x10^6/uL (3.50-5.40); RED CELL DISTRIBUTION WIDTH 12.9 % (11.5-14.5); WHITE BLOOD COUNT 6.6 x10^3/uL (4.0-11.0)
--- NOTE | 2019-11-06 10:30 | RAD ---
CT HEAD WO CONTRAST History:Right facial numbness Comparison: None. Technique: Noncontrast CT imaging was performed of the head. Exposure: One or more of the following individualized dose reduction techniques were utilized for this examination: 1. Automated exposure control 2. Adjustment of the mA and/or kV according to patient size 3. Use of iterative reconstruction technique. Findings: No acute extra-axial or parenchymal hemorrhage is identified. There is no significant intra-axial mass effect, midline shift, or extra-axial fluid collection. The gipson-white differentiation of the major vascular territories is preserved. Ventricular size is within normal limits. There is mild prominence of bifrontal subarachnoid spaces as seen previously. The mastoid air cells and the visualized paranasal sinuses are aerated. No acute calvarial abnormality is identified. Impression: 1. No acute intracranial abnormality is identified. Critical results were discussed with ED LAURA at 11/06/2019 10:26 AM. Electronically signed by: Kenny Newby MD (11/06/2019 10:27 AM) [id number]
[2019-11-06 10:33] LABS: ANION GAP 9 (6-14); BLOOD UREA NITROGEN 27 mg/dL (7-20); BUN/CREATININE RATIO 25 (6-20); CALCIUM 9.1 mg/dL (8.5-10.1); CARBON DIOXIDE 29 mmol/L (21-32); CHLORIDE 106 mmol/L (98-107); CREATININE 1.1 mg/dL (0.6-1.0); GFR 49.7; GLUCOSE 86 mg/dL (70-99); POTASSIUM 3.4 mmol/L (3.5-5.1); SODIUM 144 mmol/L (136-145)
[2019-11-06 10:39] LABS: ALBUMIN 3.7 g/dL (3.4-5.0); ALBUMIN/GLOBULIN RATIO 0.9 (1.0-1.7); ALK PHOS 81 U/L (46-116); ALT (SGPT) 27 U/L (14-59); AST (SGOT) 21 U/L (15-37); C REACTIVE PROTEIN < 0.5 mg/L (0-3.3); MAGNESIUM 1.9 mg/dL (1.8-2.4); TOTAL BILIRUBIN 0.4 mg/dL (0.2-1.0); TOTAL PROTEIN 7.7 g/dL (6.4-8.2)
--- NOTE | 2019-11-06 10:44 | RAD ---
CHEST AP ONLY History: Reason: stroke / Spl. Instructions: / History: Comparison: September 16, 2018 Findings: Low lung wires. No consolidation or pleural effusion. Normal heart size. Linear density projecting over the left lung apex likely external artifact. No definite pneumothorax. Impression: 1. No acute cardiopulmonary process. 2. Low lung volumes. Electronically signed by: Rob Lew DO (11/06/2019 10:41 AM) [id number]
[2019-11-06 12:34] LABS: BACTERIA,URINE FEW /HPF (0-FEW); BILIRUBIN,URINE NEG (NEG); CLARITY,URINE HAZY; COLOR,URINE YELLOW; GLUCOSE,URINE NEG (NEG); NITRITE,URINE NEG (NEG); RBC,URINE OCC /HPF (0-2); SQUAMOUS EPITHELIAL CELL,UR FEW /LPF; UROBILINOGEN,URINE 0.2 mg/dL (0.2 mg/dL)
[2019-11-06] MEDS ORDERED: POTASSIUM CHLORIDE 20 MEQ TABLET.ER. PO ONE (13:30)
[2019-11-06 14:03] VITALS: BP 135/82
--- NOTE | 2019-11-06 14:49 | PHYS DOC ---
Past History Past Medical History: Asthma, Hypertension, Other Additional Past Medical Histor: PULM. HTN; DIASTOLIC R HEART FAILURE Past Surgical History: Hysterectomy, Other Additional Past Surgical Histo: THORACOTOMY; CLEFT LIP REPAIR; RHINOPLASTY; THYROIDECTOMY; BILAT KNEE Alcohol Use: None Drug Use: None Adult General Chief Complaint Chief Complaint: NEURO SYMPTOMS/DEFICITS HPI HPI Patient is a 68 year old female who presents with multiple complaints. Patient states that she had chest pain all day yesterday which is continued on to today. She states the chest pain feels like it is starts in the middle and goes through the left side. She states it feels like being stuck with a hot object. 2 hours prior to arrival patient had onset of right sided facial numbness and pain. She also had some numbness in her right arm. She denies any weakness or difficulty with walking. She states she is under a large amount of stress. Review of Systems Review of Systems General: Denies fever, chills, sweats, fatigue Eyes: Denies drainage, blurred vision, eye redness HENT: Denies rhinorrhea, sore throat, earache Respiratory: Denies cough, shortness of breath, wheezing Cardiac: Denies edema, palpitations, chest pain GI: Denies abdominal pain, Nausea, vomiting MSK: Denies back pain, neck pain Skin: Denies rash, jaundice Neuro: Denies headache, dizziness reports numbness Psychiatric: Denies SI/HI Allergies Allergies Allergies Coded Allergies Type Severity Reaction Last Updated Verified aspirin Allergy Severe 11/06/19 Yes erythromycin base Allergy Intermediate 11/06/19 Yes Penicillins Allergy Mild 11/06/19 Yes tramadol Allergy Mild 11/06/19 Yes salsalate Allergy Unknown 11/06/19 Yes Physical Exam Physical Exam General: Awake, alert, NAD. Well Nourished, well hydrated. Cooperative HEENT: Atraumatic, EOMI, PERRL, airway patent, moist oral mucosa Neck: Supple, trachea midline Respiratory: CTA bilaterally, normal effort, no wheezing/crackles CV: RRR, no murmur, cap refill <2 GI: Soft, nondistended, nontender, no masses MSK: No obvious deformities Skin: Warm, dry, intact Neuro: A&O x3, speech NL, 5 out of 5 strength in all extremities proximally and distally, normal sensation in all extremities, decreased sensation to the right side of the face, cranial nerves otherwise intact, Psych: Normal affect, normal mood, not suicidal or homicidal Current Patient Data Vital Signs Vital Signs Date Time Temp Pulse Resp B/P (MAP) Pulse Ox O2 Delivery O2 Flow Rate FiO2 11/06/19 14:03 97.8 55 20 135/82 (99) 95 Room Air Lab Results Laboratory Tests Test 11/06/19 10:08 11/06/19 12:05 White Blood Count 6.6 x10^3/uL (4.0-11.0) Red Blood Count 4.56 x10^6/uL (3.50-5.40) Hemoglobin 14.3 g/dL (12.0-15.5) Hematocrit 42.6 % (36.0-47.0) Mean Corpuscular Volume 93 fL (79-100) Mean Corpuscular Hemoglobin 31 pg (25-35) Mean Corpuscular Hemoglobin Concent 34 g/dL (31-37) Red Cell Distribution Width 12.9 % (11.5-14.5) Platelet Count 291 x10^3/uL (140-400) Neutrophils (%) (Auto) 46 % (31-73) Lymphocytes (%) (Auto) 39 % (24-48) Monocytes (%) (Auto) 11 % (0-9) H Eosinophils (%) (Auto) 4 % (0-3) H Basophils (%) (Auto) 1 % (0-3) Neutrophils # (Auto) 3.0 x10^3uL (1.8-7.7) Lymphocytes # (Auto) 2.5 x10^3/uL (1.0-4.8) Monocytes # (Auto) 0.7 x10^3/uL (0.0-1.1) Eosinophils # (Auto) 0.3 x10^3/uL (0.0-0.7) Basophils # (Auto) 0.1 x10^3/uL (0.0-0.2) Activated Partial Thromboplast Time 28 SEC (23-33) Sodium Level 144 mmol/L (136-145) Potassium Level 3.4 mmol/L (3.5-5.1) L Chloride Level 106 mmol/L (98-107) Carbon Dioxide Level 29 mmol/L (21-32) Anion Gap 9 (6-14) Blood Urea Nitrogen 27 mg/dL (7-20) H Creatinine 1.1 mg/dL (0.6-1.0) H Estimated GFR (Cockcroft-Gault) 49.7 BUN/Creatinine Ratio 25 (6-20) H Glucose Level 86 mg/dL (70-99) Calcium Level 9.1 mg/dL (8.5-10.1) Magnesium Level 1.9 mg/dL (1.8-2.4) Total Bilirubin 0.4 mg/dL (0.2-1.0) Aspartate Amino Transferase (AST) 21 U/L (15-37) Alanine Aminotransferase (ALT) 27 U/L (14-59) Alkaline Phosphatase 81 U/L (46-116) Troponin I Quantitative < 0.017 ng/mL (0-0.055) C-Reactive Protein < 0.5 mg/L (0-3.3) Total Protein 7.7 g/dL (6.4-8.2) Albumin 3.7 g/dL (3.4-5.0) Albumin/Globulin Ratio 0.9 (1.0-1.7) L Urine Collection Type Void Urine Color Yellow Urine Clarity Hazy Urine pH 6.0 Urine Specific Caldwell 1.020 Urine Protein Neg (NEG-TRACE) Urine Glucose (UA) Neg mg/dL (NEG) Urine Ketones (Stick) Neg mg/dL (NEG) Urine Blood Neg (NEG) Urine Nitrite Neg (NEG) Urine Bilirubin Neg (NEG) Urine Urobilinogen Dipstick 0.2 mg/dL (0.2 mg/dL) Urine Leukocyte Esterase Neg (NEG) Urine RBC Occ /HPF (0-2) Urine WBC 1-4 /HPF (0-4) Urine Squamous Epithelial Cells Few /LPF Urine Bacteria Few /HPF (0-FEW) EKG EKG [] Radiology/Procedures Radiology/Procedures [] Course & Med Decision Making Course & Med Decision Making Pertinent Labs and Imaging studies reviewed. (See chart for details) Patient is 68-year-old female presents to the emergency room complaining of right-sided facial pain and numbness. She also complains of chest pain and has been constant. The pain is been constant this is less likely to be cardiac in nature. Cardiac work-up was ordered and troponin is negative. Chest x-ray is normal. EKG does not show signs of STEMI. CT head was ordered and was normal. Patient was offered TPA but declined. I think that this is appropriate at this time given that symptoms have progressively gotten better since she has been in the emergency room and has been minor. She has an NIH score of 1. Patient will be admitted for TIA and chest pain. Dragon Disclaimer Dragon Disclaimer This electronic medical record was generated, in whole or in part, using a voice recognition dictation system. Departure Departure: Impression: Primary Impression: TIA (transient ischemic attack) Additional Impression: Chest pain Disposition: ADMITTED INPATIENT Condition: STABLE Referrals: HERNANDO HUSSEIN MD (PCP) Justification of Admission: Justification of Admission: Justification of Admission Dx: Yes Problem Qualifiers ED LAURA MD Nov 06, 2019 14:48
[2019-11-06] MEDS ORDERED: LEVO88TA4 PO (15:11)
--- NOTE | 2019-11-06 15:20 | EKG ---
[address] [address] Test Date: 2019-11-06 Test Time: 10:22:11 Pat Name: RJ CARVER Department: Room: Gender: F Split Leather Department Supervisor: : [id number] Requested By: ED LAURA Order Number: [id number] Reading MD: Measurements Intervals Stanton Rate: 60 P: 68 UT: 192 QRS: -34 QRSD: 116 T: 38 QT: 418 QTc: 418 Interpretive Statements SINUS RHYTHM ABNORMAL LEFT AXIS DEVIATION LEFT ANTERIOR FASCICULAR BLOCK ABNORMAL ECG RI6.02 No previous ECG available for comparison
[2019-11-06] MEDS ORDERED: KETOROLAC 30 MG/ML VIAL. IVP ONE (18:45)
[2019-11-06] MEDS ORDERED: IOHEXOL 350 MG/ML 100 ML VIAL. IV ONE (19:15)
[2019-11-06 19:28] VITALS: BP 108/70
--- NOTE | 2019-11-06 19:31 | HP ---
ADMIT DATE: 11/06/2019 HISTORY OF PRESENT ILLNESS: The patient is a 68-year-old female patient who came to the Emergency Room stating that she had chest pain all day yesterday, which is continued on today. The chest pain feels like it is started in the middle and goes to the left side. Two hours prior to arrival, the patient had onset of right sided facial numbness and pain. She also has some numbness in the right arm. She denies any weakness or difficulty with walking. She is under a large amount of stress recently. She was evaluated in the Emergency Room, had had an EKG, which showed no evidence of ST segment elevation myocardial infarction. Her chest x-ray was normal. Her cardiac enzymes showed her troponin was less than 0.017. She apparently came within the window for TPA, she was offered TPA, but declined as her symptoms were progressively improving after she arrived to the Emergency Room and has been much less compared to when they started and the patient was admitted for diagnosis of TIA and chest pain. We will consult the neurologist as well as the director of communications. PAST MEDICAL HISTORY: Significant for hypertension, hyperlipidemia, hypothyroidism, had had previous history of TIA, generalized osteoarthritis and atrial fibrillation. She has also had cardiac murmur. PAST SURGICAL HISTORY: Significant for bilateral knee arthroscopic surgery. 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 She has rhinoplasty, cleft lip repair. ALLERGIES: SHE IS ALLERGIC TO ASPIRIN, PENICILLIN, ERYTHROMYCIN, SALSALATE AND TRAMADOL. MEDICATIONS: She is currently on following medications: She is on Crestor 20 mg at bedtime, metoprolol tartrate 50 mg twice a day. She is on gabapentin 900 mg at bedtime, calcium carbonate with vitamin D3 one tablet once a day, triamterene/hydrochlorothiazide 37.5/25 one tablet once a day, omeprazole 20 mg daily, levothyroxine sodium 88 mcg daily, vitamin B2 50 mg once a day, multivitamin 1 tablet once a day, glucosamine/chondroitin sulfate 1 capsule daily. FAMILY HISTORY: She has one brother who is younger and of sudden cardiac ; 3 sisters, all younger and one of them has diabetes, all of them have kidney stones. Her father at age of 43 in a motor vehicle accident. Mother is and has multiple complications including diabetes mellitus, heart disease, cancer of thyroid, colon cancer and has end-stage kidney disease and was on hemodialysis for 25 years. SOCIAL HISTORY: She is , has 1 son and 2 daughters. She never smoked, does not drink alcohol or use any recreational drugs. She worked for [employer] for 25 years in the [employer]. She has also worked for [employer]. She is currently retired. REVIEW OF SYSTEMS: The patient denied any blurring of vision, cataract, glaucoma or macular degeneration. Denied any earache, tinnitus or sensorineural deafness. Denied any nosebleeds, stuffy nose or postnasal drip. Denied any sore throat, sore tongue, toothache, hoarseness of voice or difficulty swallowing. She denied any nausea, vomiting, diarrhea or constipation. Denied any hematemesis, melena or hematochezia. Denied any dysuria, frequency or hematuria. Did complain of chest pain, but denied any shortness of breath, orthopnea, paroxysmal nocturnal dyspnea. Denied any cough, phlegm or hemoptysis. Denied any chills, rigors, or fever. Denied any dizziness or lightheadedness. Did complain obviously of tingling and numbness in her right side of the face and right upper extremity that has apparently resolved, but almost completely by the time she arrived to the Emergency Room. PHYSICAL EXAMINATION: GENERAL: On arrival, she looked well and was clearly in no apparent distress. No pallor, jaundice, cyanosis or thyromegaly. No jugular venous distention. No limb edema. VITAL SIGNS: Her heart rate was 72, blood pressure was 121/62, temperature was 97.8, respiratory rate 12 and oxygen saturation was 98% on room air. HEAD, EYES, EARS, NOSE AND THROAT: Showed normocephalic, atraumatic. NECK: Supple. HEART: Showed normal first and second heart sounds. No gallop, rub or murmur. CHEST: Clear to auscultation. No crepitation or rhonchi. ABDOMEN: Distended, soft, nontender. No guarding or rigidity. No organomegaly. All hernial orifice intact. Bowel sounds normal. NEUROLOGIC: She was alert, oriented x 3. Her strength of both upper and lower extremities are normal. Normal sensation in all extremities, decreased sensation on the right side of the face. Cranial nerves otherwise intact. Her affect, mood are normal. EXTREMITIES: Showed no clubbing, cyanosis or edema. LABORATORY DATA: Showed a white cell count 6600, hemoglobin 14, hematocrit 42.6, MCV 93, and platelet count 291,000 with normal manual differential. Her chemistry showed a serum sodium 144, potassium 3.4, chloride 106, bicarbonate 29, anion gap of 9, BUN 24, creatinine 1.1, estimated GFR was 49 mL per minute. Her glucose was 86, calcium was 9.1, magnesium was 1.9. Total bilirubin, AST, ALT, alkaline phosphatase were normal. Her first set of troponin was less than 0.017. C-reactive protein was less than 0.5. Total protein was 7.7, albumin was 3.7. Her aPTT was 28. Urinalysis was essentially unremarkable. She did have a CT scan of the head, which basically showed that there is no extraaxial or parenchymal hemorrhage identified. There is no significant intraaxial mass effect, midline shift or extraaxial fluid collection. The Cottrell-white differentiation of the major vascular territories is preserved. Ventricular size within normal limits. There is mild prominence of bifrontal subarachnoid spaces seen previously. The mastoid air cells and visualized paranasal sinuses are aerated. No acute calvarial abnormalities detected. Her chest x-ray showed the patient has low lung volumes, no consolidation or pleural effusion, normal heart size, linear density projecting over the left lung apex likely external artifact, no definite pneumothorax. ASSESSMENT AND PLAN: The patient was admitted with chest pain as well as TIA. We have consulted the neurologist as well as the director of communications. We did 2 more sets of cardiac enzyme. We will check her also fasting lipid profile and also arrange for CT angio after consulting the Cardiology team as her creatinine is 1.1 and estimated GFR was 49. CHRISTINE RAMIREZ MD DR: CHARI/maddison JOB#: [id number] / [id number]
--- NOTE | 2019-11-06 20:00 | RAD ---
Exam: CTA head and neck INDICATION: Right-sided facial droop and upper: Numbness TECHNIQUE: Sequential axial images through the head and neck obtained following the administration of 75 mL of Omni 350 IV contrast. Sagittal and coronal reformatted images were reconstructed from the axial data and reviewed. 3-D reformatted images were reconstructed from the axial data and reviewed. Comparisons: CT head without contrast FINDINGS: CTA NECK: Visualized portions of the thoracic aorta are unremarkable. Standard three-vessel aortic arch anatomy. Right common carotid artery is patent without evidence of stenosis, occlusion or aneurysm. Cervical segment of the right internal carotid artery is patent without evidence of stenosis, occlusion or aneurysm. Left common carotid artery is patent without evidence of stenosis, occlusion or aneurysm. Cervical segment of the left internal carotid artery is patent without evidence of stenosis, occlusion or aneurysm. Right vertebral artery is patent to basilar confluence without evidence of stenosis, occlusion or aneurysm. Left vertebral artery is patent to basilar confluence without evidence of stenosis, occlusion or aneurysm. Visualized soft tissues are unremarkable. CTA HEAD: Evaluation of the intracranial arterial vasculature is limited secondary to contrast bolus timing. Intracranial segments of the right internal carotid artery are patent without evidence of stenosis, occlusion or aneurysm. Right MCA is patent proximally. Right JUMANA is patent proximally. Intracranial segments of the left internal carotid artery is patent without evidence of stenosis, occlusion or aneurysm. Left MCA is patent proximally. Left JUMANA is patent proximally. Basilar artery is patent without evidence of stenosis, occlusion or aneurysm. chronometer assembler and adjuster are patent bilaterally. IMPRESSION: 1. Limited evaluation of the intracranial arterial vessels secondary to contrast bolus timing. 2. No large vessel occlusion identified. 3. Patent cervical arterial vasculature without evidence of stenosis, occlusion or aneurysm. Exposure: One or more of the following in the visualized dose reduction techniques were utilized for this examination: 1. Automated exposure control 2. Adjustment of the MA and/or KV according to patient size 3. Use of iterative of reconstructive technique Electronically signed by: Bernardino Briggs MD (11/06/2019 7:57 PM) [id number]
[2019-11-06] MEDS ORDERED: ATORVASTATIN CALCIUM 20 MG TABLET PO SCH (21:00)
[2019-11-06] MEDS: METOPROLOL TART IMMED RELEASE 50 MG TABLET PO SCH (21:00)
[2019-11-06] MEDS ORDERED: GABAPENTIN 300 MG CAPSULE. PO SCH (21:00)
[2019-11-06 21:21] VITALS: BP 107/69
[2019-11-06 22:34] VITALS: BP 116/79
--- NOTE | 2019-11-07 01:33 | CONS ---
DATE OF CONSULTATION: 11/06/2019 NEUROLOGY CONSULTATION REFERRING PHYSICIAN: Dr. Epstein. REASON FOR CONSULTATION: Rule out TIA. HISTORY OF PRESENT ILLNESS: This is a 68-year-old right-handed female who was admitted through Emergency Room after she presented with 1-day onset of chest pain radiating into the left upper extremity began the day before admission. The patient was admitted through Emergency Room after she started experiencing new onset of right facial numbness associated with numbness of the right upper extremity and rest of the right lower extremity. The symptoms started 2 hours prior to the admission; however, the patient was offered TPA; however, the patient has improved in the Emergency Room. Therefore, TPA was not activated. She described as being dizzy with nausea and intermittent severe frontal headaches. The patient stated she has had history of migraine disease for which she has been seen by a neurologist at [facility] and treated with Toradol. She also described global headaches and sometimes occipital headache, radiating into the cervical region. She denies shortness of breath or palpitation. In Emergency Room, EKG revealed no evidence of acute changes with normal troponin level. The patient was admitted for further evaluation and rule out transient ischemic attacks. Initial nonenhanced head CT scan revealed no acute intracranial process. PAST MEDICAL HISTORY: Significant for coronary artery disease, status post myocardial infarction, hypothyroidism, hyperlipidemia, hypertension, history of TIA in 1996, osteoarthritis, history of atrial fibrillation and cardiac murmur. The patient has been followed by a bottom buffer at [facility]. Peripheral neuropathy in the lower extremities. PAST SURGICAL HISTORY: Positive for bilateral knee arthroscopic surgeries, thoracotomy to remove a chest cyst in 2007, hysterectomy, thyroidectomy for Rose's thyroiditis, rhinoplasty and cleft lip repair. ALLERGIES: PENICILLIN, ASPIRIN, ERYTHROMYCIN, SALICYLATE and TRAMADOL. FAMILY HISTORY: Positive for sudden cardiac in her younger brother. History of diabetes mellitus affecting 3 sisters with kidney stones. Father at age of 43 from motor vehicle accident. Mother from complication of diabetes and heart disease and cancer of the thyroid with colon cancer. SOCIAL HISTORY: The patient is . She has 1 son and 2 daughters. She denies smoking, alcohol drinking or illicit drug use. REVIEW OF SYSTEMS: A 10-point review of system was performed as mentioned in the history of present illness consistent with right facial and upper extremity numbness and paresthesia, global headaches with nausea, photophobia and phonophobia. PHYSICAL EXAMINATION: GENERAL: Well-developed, well-nourished female, not in acute distress. She weighs 83.7 kilos. VITAL SIGNS: Blood pressure 107/69, respiratory rate 20, pulse is 76 and regular and oxygen saturation is 97% on room air. HEENT: Normocephalic, atraumatic, otherwise unremarkable. NECK: Supple. Negative for carotid bruit, lymphadenopathy or thyromegaly. LUNGS: Clear to A and P. CARDIOVASCULAR: Regular rate and rhythm, normal S1, S2. There is a 2/6 systolic murmur without radiation to the neck. ABDOMEN: Soft. Bowel sounds positive. EXTREMITIES: Negative for cyanosis, clubbing or edema. NEUROLOGIC: Mental status: The patient is alert and oriented x 3. Speech is fluent. There is no language dysfunction. Memory, judgment, and abstract thinking are normal. The patient denies hallucination or delusion. CRANIAL NERVES: Visual card are full. The pupils are reactive to light and accommodation. The extraocular movements are intact. There is no nystagmus. There is no facial motor or sensory deficit. Hearing is intact bilaterally. The palate is elevated symmetrically. Sternocleidomastoid muscles are powerful bilaterally. The patient shrugs her shoulders symmetrically, protrudes her tongue in the midline without fasciculation or atrophy. MOTOR EXAMINATION: No focal muscle bulk was seen. The tone is normal. The strength is 5/5 throughout. Sensory examination revealed subjectively diminished pinprick and light touch senses over the right face and right upper extremity compared to those on the left side. Deep tendon reflexes were symmetric and hypoactive with absent Achilles responses. Gait: The stance is normal. The patient has normal gait and coordination. LABORATORY DATA: CBC revealed white blood cells of 6.6 thousand, hemoglobin 14.3, hematocrit 42.6, platelet count 291,000. Chemistry revealed sodium of 144, potassium 3.4, chloride 106, CO2 of 29, BUN 27, creatinine 1.1, GFR is 49.7, glucose 86, calcium 9.1. Liver enzymes are normal. Troponin level is normal. Urinalysis is negative. DIAGNOSTIC DATA: Initial nonenhanced head CT scan revealed no evidence of acute intracranial process and CT angio revealed no evidence of acute stenosis, aneurysm or acute intracranial process. IMPRESSION: 1. Possible transient ischemic attack. 2. Chest pain with normal cardiac enzymes and EKG. 3. Multiple medical problems include hyperlipidemia, generalized osteoarthritis and hypertension. 4. Peripheral neuropathy of the lower extremities. RECOMMENDATIONS: 1. Continue with current home medications including gabapentin. 2. Cardiology consult. M Sravani QUINTANA MD DR: NICK/maddison JOB#: [id number] / [id number]
[2019-11-07] MEDS ORDERED: LEVOTHYROXINE 88 MCG TABLET PO SCH (06:00)
[2019-11-07 06:09] VITALS: BP 103/68
[2019-11-07 06:54] LABS: CALCIUM 8.6 mg/dL (8.5-10.1); CREATININE 1.1 mg/dL (0.6-1.0); GFR 49.7; POTASSIUM 4.1 mmol/L (3.5-5.1)
--- NOTE | 2019-11-07 09:15 | PDOC2 ---
CARDIAC CONSULT DATE OF CONSULT DOS: DATE: 11/07/19 TIME: 09:09 REASON FOR CONSULT Reason for Consult Chest pain REFERRING PHYSICIAN Referring Physician Dr. Epstein SOURCE Source: Chart review, Patient HPI History of Present Illness This is a 68 yo female who presented secondary to burning central chest pain and right-sided facial numbness and pain. She reports intermittent pain in her central chest for the last week. No associated dizziness, diaphoresis, palp itations, or nausea/vomiting. Pain lasted hours and would resolved without intervention. Seemed to be worse with deep breathing. Yesterday, pain was significantly worse and would not resolved. Also noted numbness and tingling in the right side of her face and radiated down the right arm. Associated with dizziness. No SOA. Due to persistent chest pain and right facial symptoms, dieudonne ent decided to come into the ED for further evaluation and treatment. Trop negative x3. EKG without significant acute changes. PAST MEDICAL HISTORY Cardiovascular: HTN, hyperipidemia CENTRAL NERVOUS SYSTEM: Periperal neuropathy, TIA GI: GERD Musculoskeletal: Osteoarthritis Endocrine: Hypothyroidism PAST SURGICAL HISTORY Past Surgical History: Hernia Repair, Hysterectomy, Other (thoracotomy) FAMILY HISTORY Family History: Cancer (thyroid ), Coronary Artery Disease, Diabetes SOCIAL HISTORY Smoke: No ALCOHOL: none Drugs: None Lives: Alone CURRENT MEDICATIONS Current Medications Current Medications Potassium Chloride (Klor-Con) 40 meq 1X ONCE PO Last administered on 11/06/19at 15:17; Start 11/06/19 at 13:30; Stop 11/06/19 at 13:31; Status DC Ketorolac Tromethamine (Toradol 30mg Vial) 30 mg 1X ONCE IVP Last administered on 11/06/19at 21:27; Start 11/06/19 at 18:45; Stop 11/06/19 at 18:54; Status DC Iohexol (Omnipaque 350 Mg/ml) 100 ml 1X ONCE IV Last administered on 11/06/19at 19:28; Start 11/06/19 at 19:15; Stop 11/06/19 at 19:25; Status DC Gabapentin (Neurontin) 900 mg HS PO Last administered on 11/06/19at 21:27; Start 11/06/19 at 21:00 Metoprolol Tartrate (Lopressor) 50 mg BID PO ; Start 11/06/19 at 21:00 Atorvastatin Calcium (Lipitor) 80 mg QHS PO Last administered on 11/06/19at 21:29; Start 11/06/19 at 21:00 Levothyroxine Sodium (Synthroid) 88 mcg DAILY06 PO Last administered on 11/07/19at 05:12; Start 11/07/19 at 06:00 Active Scripts Active Reported Levothyroxine Sodium 88 Mcg Tablet 88 Mcg PO DAILY06 Vitamin B-2 (Riboflavin) 50 Mg Tablet 50 Mg PO DAILY LAST DOSE GIVEN: DATE: TODAY TIME: AM NEXT DOSE DUE: DATE: TOMORROW TIME: AM Multivitamins (Multivitamin) 1 Each Tablet 1 Tab PO DAILY LAST DOSE GIVEN: DATE: TODAY TIME: AM NEXT DOSE DUE: DATE: TOMORROW TIME: AM Glucosamine & Chondroitin Cap (Glucosa Nichols 2KCL/Chondroitin Nichols) 1 Each Capsule 1 Cap PO DAILY NOT GIVEN IN THE HOSPITAL NEXT DOSE DUE: DATE: TOMORROW TIME: AM DATE: TIME: Calcium 600 + Vit D Caplet (Calcium Carbonate/Vitamin D3) 1 Each Tablet 1 Tab PO DAILY LAST DOSE GIVEN: DATE: TODAY TIME: AM NEXT DOSE DUE: DATE: TOMORROW TIME: AM Rosuvastatin Calcium 20 Mg Tablet 20 Mg PO HS LAST DOSE GIVEN: DATE: YESTERDAY TIME: AT BEDTIME NEXT DOSE DUE: DATE: TODAY TIME: AT BEDTIME Metoprolol Tartrate 50 Mg Tablet 50 Mg PO BID LAST DOSE GIVEN: DATE: TODAY TIME: AM NEXT DOSE DUE: DATE: TODAY TIME: PM Gabapentin 300 Mg Capsule 900 Mg PO HS LAST DOSE GIVEN: DATE: YESTERDAY TIME: AT BEDTIME NEXT DOSE DUE: DATE: TODAY TIME: AT BEDTIME Omeprazole 20 Mg Capsule.dr 20 Mg PO DAILY LAST DOSE GIVEN: DATE: TODAY TIME: AM NEXT DOSE DUE: DATE: TOMORROW TIME: AM Triamterene-Hctz 37.5-25 Mg Cp (Triamterene/Hydrochlorothiazid) 1 Each Capsule 1 Cap PO DAILY LAST DOSE GIVEN: DATE: TODAY TIME: AM NEXT DOSE DUE: DATE: TOMORROW TIME: AM ALLERGIES Allergies: Coded Allergies: aspirin (Verified Allergy, Severe, 11/06/19) Syncope, vomiting with aspirin erythromycin base (Verified Allergy, Intermediate, 11/06/19) Penicillins (Verified Allergy, Mild, 11/06/19) tramadol (Verified Allergy, Mild, 11/06/19) salsalate (Verified Allergy, Unknown, 11/06/19) ROS Review of Systems 14 point ROS conducted with pertinent positives noted above in HPI PHYSICAL EXAM General: Alert, Oriented X3, Cooperative, No acute distress HEENT: Atraumatic, Mucous membr. moist/pink Lungs: Clear to auscultation Heart: Regular rate, Normal S1 Abdomen: Soft, No tenderness Extremities: No edema, Normal pulses Skin: No breakdown Neuro: Normal speech, Sensation intact Psych/Mental Status: Mental status NL, Mood NL MUSCULOSKELETAL: Osteoarthritic changes both hands VITALS Vital Signs Vital Signs Date Time Temp Pulse Resp B/P (MAP) Pulse Ox O2 Delivery O2 Flow Rate FiO2 11/07/19 06:09 98.0 75 20 103/68 (80) 95 Room Air LABS LABS Laboratory Tests Test 11/06/19 10:08 11/06/19 12:05 11/06/19 18:47 11/06/19 21:10 White Blood Count 6.6 x10^3/uL (4.0-11.0) Red Blood Count 4.56 x10^6/uL (3.50-5.40) Hemoglobin 14.3 g/dL (12.0-15.5) Hematocrit 42.6 % (36.0-47.0) Mean Corpuscular Volume 93 fL (79-100) Mean Corpuscular Hemoglobin 31 pg (25-35) Mean Corpuscular Hemoglobin Concent 34 g/dL (31-37) Red Cell Distribution Width 12.9 % (11.5-14.5) Platelet Count 291 x10^3/uL (140-400) Neutrophils (%) (Auto) 46 % (31-73) Lymphocytes (%) (Auto) 39 % (24-48) Monocytes (%) (Auto) 11 % (0-9) Eosinophils (%) (Auto) 4 % (0-3) Basophils (%) (Auto) 1 % (0-3) Neutrophils # (Auto) 3.0 x10^3uL (1.8-7.7) Lymphocytes # (Auto) 2.5 x10^3/uL (1.0-4.8) Monocytes # (Auto) 0.7 x10^3/uL (0.0-1.1) Eosinophils # (Auto) 0.3 x10^3/uL (0.0-0.7) Basophils # (Auto) 0.1 x10^3/uL (0.0-0.2) Activated Partial Thromboplast Time 28 SEC (23-33) Sodium Level 144 mmol/L (136-145) Potassium Level 3.4 mmol/L (3.5-5.1) Chloride Level 106 mmol/L (98-107) Carbon Dioxide Level 29 mmol/L (21-32) Anion Gap 9 (6-14) Blood Urea Nitrogen 27 mg/dL (7-20) Creatinine 1.1 mg/dL (0.6-1.0) Estimated GFR (Cockcroft-Gault) 49.7 BUN/Creatinine Ratio 25 (6-20) Glucose Level 86 mg/dL (70-99) Calcium Level 9.1 mg/dL (8.5-10.1) Magnesium Level 1.9 mg/dL (1.8-2.4) Total Bilirubin 0.4 mg/dL (0.2-1.0) Aspartate Amino Transf (AST/SGOT) 21 U/L (15-37) Alanine Aminotransferase (ALT/SGPT) 27 U/L (14-59) Alkaline Phosphatase 81 U/L (46-116) Troponin I Quantitative < 0.017 ng/mL (0-0.055) < 0.017 ng/mL (0-0.055) < 0.017 ng/mL (0-0.055) C-Reactive Protein < 0.5 mg/L (0-3.3) Total Protein 7.7 g/dL (6.4-8.2) Albumin 3.7 g/dL (3.4-5.0) Albumin/Globulin Ratio 0.9 (1.0-1.7) Urine Collection Type Void Urine Color Yellow Urine Clarity Hazy Urine pH 6.0 Urine Specific Lincoln 1.020 Urine Protein Neg (NEG-TRACE) Urine Glucose (UA) Neg mg/dL (NEG) Urine Ketones (Stick) Neg mg/dL (NEG) Urine Blood Neg (NEG) Urine Nitrite Neg (NEG) Urine Bilirubin Neg (NEG) Urine Urobilinogen Dipstick 0.2 mg/dL (0.2 mg/dL) Urine Leukocyte Esterase Neg (NEG) Urine RBC Occ /HPF (0-2) Urine WBC 1-4 /HPF (0-4) Urine Squamous Epithelial Cells Few /LPF Urine Bacteria Few /HPF (0-FEW) Test 11/07/19 06:17 Sodium Level 144 mmol/L (136-145) Potassium Level 4.1 mmol/L (3.5-5.1) Chloride Level 108 mmol/L (98-107) Carbon Dioxide Level 28 mmol/L (21-32) Anion Gap 8 (6-14) Blood Urea Nitrogen 26 mg/dL (7-20) Creatinine 1.1 mg/dL (0.6-1.0) Estimated GFR (Cockcroft-Gault) 49.7 Glucose Level 96 mg/dL (70-99) Calcium Level 8.6 mg/dL (8.5-10.1) ECHOCARDIOGRAM Echocardiogram <Conclusion> The left ventricular systolic function is normal and the ejection fraction is within normal range. EF 55% There is normal LV segmental wall motion. The right ventricle is mildly to moderately dilated. No significant pulmonary HTN DATE: 09/17/18 1640 * Left Ventricle: Normal size and mass. Concentric remodeling. Normal ejection fraction. EF 55%. No regional wall motion abnormalities seen. Normal left ventricular diastolic function. Normal left atrial pressure. * Right Ventricle: Normal size. Borderline low ejection fraction. TAPSE 1.5- 1.7cm. RV S' of 10cm/s. (Slightly smaller with better systolic function when compared to study on 01/16/2018) * Estimated Peak Systolic PA Pressure (25+ RA pressure) mmHg * No hemodynamically significant valvular abnormalities. 12/21/18 - 2-D + DOPPLER ECHOCARDIOGRAM STRESS TEST Stress Test 09/28/18 - Procedure: D-SPECT MULTI GATED THALLIUM REGADENOSON MPI STRESS TEST SUMMARY/OPINION: This study is probably normal with no evidence of significant myocardial ischemia. The fixed reduction in tracer activity involving the inferior wall would be most consistent with soft tissue attenuation artifact, particularly given the presence of normal corresponding regional wall motion and thickening. Left ventricular systolic function is normal. There are no high risk prognostic indicators present. The pharmacologic ECG portion of the study is negative for ischemia. Comparison is made with a prior D-SPECT study completed 04/14/15. Those images are not presently available for direct comparison, but per the report the pe rfusion pattern was noted to be normal with soft tissue attenuation present. The ejection fraction was = 53 %. In aggregate the current study is low risk in regards to predicted annual cardiovascular mortality rate. HEART CATH Heart Cath April 23, 2010, cardiac catheterization revealed normal coronary arteries. ASSESSMENT/PLAN Assessment/Plan 1. Chest pain, atypical. troponin series normal, AMI ruled out. Cath 2010 with normal coronaries. MPI 10/12 without evidence of ischemia or infarct. Echo 12/13 with preserved LV systolic function 2. Right-sided facial pain, numbness 3. Hypertension; controlled 4. Hyperlipidemia; statin 5. H/o ST; on metoprolol 6. Hypothyroidism, acquired Recommendations Allergy to ASA Continue statin, metoprolol Lipids TSH Will arranged for outpatient ischemic evaluation Follow up Dr. Tyler as scheduled. SUZANNA BARNES APRN Nov 07, 2019 09:14
[2019-11-07] MEDS: METOPROLOL TART IMMED RELEASE 50 MG TABLET PO SCH (09:32)
[2019-11-07 10:35] VITALS: BP 107/72
--- NOTE | 2019-11-07 13:28 | PN ---
DATE: REFERRING PHYSICIAN: Dr. Epstein SUBJECTIVE: The patient complains of dizziness described as spinning maybe when she changed her body positions from sitting to standing and when she walks. She denies hearing loss and headache this morning. She denies chest pain, shortness of breath palpitation, dysarthria or dysphagia. OBJECTIVE: GENERAL: Well-developed, well-nourished female, not in acute distress. VITAL SIGNS: Blood pressure 103/68, respiratory rate 20, pulse is 75, oxygen saturation 95% on room air, and temperature is 98. HEENT: Normocephalic, atraumatic, otherwise unremarkable. NECK: Negative for carotid bruit, lymphadenopathy or thyromegaly. LUNGS: Clear to A and P. CARDIOVASCULAR: Regular rate and rhythm, normal S1, S2. There is mild 2/6 systolic murmur. ABDOMEN: Soft. Bowel sounds positive. EXTREMITIES: Negative for cyanosis, clubbing or edema. NEUROLOGIC: Mental status: The patient is alert and oriented x 3. Speech is fluent. There is no language dysfunction, otherwise unremarkable. Cranial nerves are intact. No nystagmus. Motor examination: No focal muscle bulk was seen. The tone was normal. The strength was 5/5 throughout. Sensory examination revealed mildly diminished pinprick and light touch senses over the right face and upper extremities. Deep tendon reflexes were symmetric and hypoactive with absent Achilles responses. Gait and coordination were normal. IMPRESSION: 1. Questionable transient ischemic attack, presented with right facial and upper extremity sensory deficit. The patient has been on extreme stress and anxiety. 2. Moderate vertigo, probably benign positional vertigo. 3. Atypical chest pain with negative cardiac enzymes and normal EKG without acute changes. 4. Peripheral neuropathy in the lower extremities. RECOMMENDATIONS: 1. Vestibular exercise may alleviate the symptoms. 2. Continue with current management initiated by Dr. Epstein. 3. The patient to follow with her sales management intern at [facility] [place] as she has history of diastolic heart failure. M Sravani QUINTANA MD DR: NICK/maddison JOB#: [id number] / [id number]
[2019-11-07 14:49] VITALS: BP 117/76
--- NOTE | 2019-11-07 18:31 | DS ---
DATE OF DISCHARGE: HOSPITAL COURSE: The patient is a 68-year-old female patient who came in with a complaint of chest pain and right-sided facial numbness and pain and also right upper extremity. She was extensively investigated. Her CBC was unremarkable. Her chemistry showed that she has 3 sets of cardiac enzymes that ruled out myocardial infarction and her CT scan of the head showed no acute intracranial abnormality identified. There was no acute extraaxial or parenchymal hemorrhage identified. There is no significant interim intraaxial mass effect, midline shift or extraaxial fluid collection. The gipson-white differentiation of the major vascular territories is preserved. Ventricular size within normal limits. There is mild prominence of the bifrontal subarachnoid spaces. As seen previously, the mastoid air cells and the visualized paranasal sinuses are aerated. She has also a CT angio of the head and neck and this showed that limited evaluation of the intracranial arterial vessel secondary to contrast bolus timing. No large vessel occlusion identified. Patent cervical arterial vasculature without evidence of stenosis, occlusion or aneurysm. The patient was seen by the bar machine operator multiple spindle and arrangement has been made for her to have a stress test as an outpatient to follow with Dr. Tyler on 12/03. She also will follow with Dr. Lemus and also arrangement was made for her to be followed by Dr. Lemus as an outpatient. When I saw her this afternoon, she stated that her symptom has largely subsided. She was sitting comfortably in the edge of the bed, eating her dinner without difficulty. PHYSICAL EXAMINATION: GENERAL: When I examined her, she looked somewhat pale. No jaundice, cyanosis or thyromegaly. No jugular venous distention. No lower limb edema. VITAL SIGNS: Her heart rate was 59, blood pressure was 117/76, temperature 97.9, respiratory rate 20, and oxygen saturation was 96% on room air. HEAD, EYES, EARS, NOSE AND THROAT: Showed normocephalic, atraumatic. NECK: Supple. HEART: Showed normal first and second heart sounds. No gallop or murmur. CHEST: Clear to auscultation. No crepitation or rhonchi. ABDOMEN: Distended, soft, nontender. NEUROLOGIC: She was awake, alert, responding appropriately. All her cranial nerves are intact. EXTREMITIES: She moves extremities without difficulty. She ambulates without assistance or assistive devices. LABORATORY DATA: This morning showed a serum sodium of 144, potassium 4.1, chloride 108, bicarbonate 28, anion gap of 8, BUN 26, creatinine was 1.1. Estimated GFR was 50 mL per minute. Her glucose was 96, calcium was 8.6. Her TSH was normal at 1.635. Serum triglycerides 151, total cholesterol 193, LDL was 95, VLDL was 30, HDL was 68 and the ratio was 2. DISCHARGE MEDICATIONS: She was discharged home to continue with calcium carbonate with vitamin D one tablet once a day, gabapentin 900 mg at bedtime, glucosamine plus chondroitin sulfate 1 capsule once a day, levothyroxine sodium 88 mcg once a day, metoprolol tartrate 50 mg twice a day, multivitamin 1 tablet once a day, omeprazole 20 mg once a day, riboflavin or vitamin B2 50 mg once a day, Crestor 20 mg at bedtime, triamterene/hydrochlorothiazide 37.5/25 one tablet once a day. FINAL DISCHARGE DIAGNOSES: 1. Atypical chest pain, acute myocardial infarction ruled out. 2. Questionable transient ischemic attack, presented with right facial and upper extremity sensory deficit. She has multiple other medical problems including: A. Hypertension. B. Hyperlipidemia. C. Hypothyroidism. D. Previous history of transient ischemic attack. E. Generalized osteoarthritis. F. Atrial fibrillation. CHRISTINE RAMIREZ MD DR: CHARI/maddison JOB#: [id number] / [id number]
== END 2019-11-07 18:22 | disposition home or self-care (01) | DRG 69 ==
LOC: ER 10:03 → 1 SOUTH 11:48
PROVIDERS: ADMIT Internal Medicine; ATTEND Internal Medicine
DX: G45.9 Transient cerebral ischemic attack, unspecified (principal); R07.89 Other chest pain; E78.5 Hyperlipidemia, unspecified; E89.0 Postprocedural hypothyroidism; F41.9 Anxiety disorder, unspecified; G62.9 Polyneuropathy, unspecified; H81.10 Benign paroxysmal vertigo, unspecified ear; I11.0 Hypertensive heart disease with heart failure; I25.10 Atherosclerotic heart disease of native coronary artery without angina pectoris; I25.2 Old myocardial infarction; I48.91 Unspecified atrial fibrillation; I50.810 Right heart failure, unspecified; J45.909 Unspecified asthma, uncomplicated; M15.9 Polyosteoarthritis, unspecified; Z80.0 Family history of malignant neoplasm of digestive organs; Z80.8 Family history of malignant neoplasm of other organs or systems; Z82.41 Family history of sudden cardiac death; Z82.49 Family history of ischemic heart disease and other diseases of the circulatory system; Z83.3 Family history of diabetes mellitus; Z86.73 Personal history of transient ischemic attack (TIA), and cerebral infarction without residual deficits; Z87.730 Personal history of (corrected) cleft lip and palate; Z90.710 Acquired absence of both cervix and uterus; G43.909 Migraine, unspecified, not intractable, without status migrainosus; K21.9 Gastro-esophageal reflux disease without esophagitis; Z88.0 Allergy status to penicillin; Z88.8 Allergy status to other drugs, medicaments and biological substances
CPT/HCPCS: 36415; 70450; 70496; 70498; 71045; 80048; 80053; 80061; 81001; 83735; 84443; 84484; 85025; 85730; 86140; 93005; J1885; Q9967; 92610; 99285-25

== ENCOUNTER → 2019-11-21 | Outpatient (CLI) | payer MEDICARE, BC ==
[2019-11-07 14:49] VITALS: BP 117/76
[~2019-11-21] MED LIST changes: +LEVO88TA4 PO; +REGADENOSON 0.4 MG/5 ML DISP.SYRIN. IV ONE
--- NOTE | 2019-11-21 13:33 | RAD ---
MR#: [id number] Date of Study: 11/21/2019 Ordering Physician: AGNIESZKA ONTIVEROS, Referring Physician: MARINA BALDERRAMA Tech: RT Tonny (R) (N) APPROVED REPORT Test Type: Pharmacological Stress Nurse/Tech: Agus Duffy Test Indications: CP Cardiac History: No known cardiac Medications: See EHR Resting Heart Rate: 49 bpm Resting Blood Pressure: 113/54mmHg Pretest Chest Pain: None Pharm. Details Pharmacologic stress testing was performed using 0.4mg per 5ml of regadenoson given intravenously ove r 7-10 seconds. POST EXERCISE Reason for Termination: Infusion complete Blood Pressure response to exercise: Normal blood pressure response during stress. Heart Rate response to exercise: Normal Chest Pain: No. Arrhythmia: No. ST Change: No. INTERPRETATION Stress EKG Conclusion: Baseline EKG showed sinus rhythm. No ischemic changes at peak stress. No arr hythmias. Imaging Protocol IMAGE PROTOCOL: Rest Tc-99m/stress Tc-99m 1 day Rest: Stress: Viability: Radiopharm.Tc99m [id number] Sestamibi Shgs82wOj 33mCi Duration 15min. 15min. Img Date 11/21/2019 11/21/2019 Rest Admin Site:IV - Left AntecubitalAdministrator: RT Tonny (R)(N) Stress Admin Site: IV - Left AntecubitalAdministrator: RT Tonny (R)(N) STRESS DATA End Diast. Vol.65.0mlAv. Heart Rate54.0bpm End Syst. Vol.16.0mlCO Index BSA0.0L/min Myocardial Wofx134.0gEject. Vfpuyouw73.0% Stress Rates Pk. Fill Rate2.31EDV/secLVtime Pk. Fill 286.53msec Pk. Empty Rate3.54ESV/secLVtime Pk. Zisof143.36msec 1/3 Pk. Fill0.96EDV/sec Stress Scores Regional WT0.00Summed WT1.00 Regional WM0.00Summed WM0.00 Study quality was good. Left Ventricular size was Normal at Rest and Stress. Lung uptake was . Left Ventricular ejection fraction is 71%. The rest and stress images show normal perfusion, normal contraction and thickening. LV Perf. Quant 17 Seg. SSS4.00 17 Seg. SRS9.00 17 Seg. SDS0.00 Stress Defect Extent (% LAD)0.00Rest Defect Extent (% LAD)13.10Rev. Defect Extent (% LAD)0.00 Stress Defect Extent (% LCX) 20.00Rest Defect Extent (% LCX)20.00Rev. Defect Extent (% LCX)0.00 Stress Defect Extent (% RCA)0.00Rest Defect Extent (% RCA)2.20Rev. Defect Extent (% RCA)0.00 Stress Defect Extent (% JUDAH)7.00Rest Defect Extent (% JUDAH)13.90Rev. Defect Extent (% JUDAH)0.00 Conclusion 1. Regadenoson cardioisotope stress test did not show any evidence of ischemia or infarct. 2. Normal left ventricular systolic function with ejection fraction calculated at 71%. 3. Low risk for cardiac events. Signed by : Skip Menjivar, Electronically Approved : 11/21/2019 13:33:06
== END | disposition home or self-care (01) ==
LOC: NM 07:47
PROVIDERS: ATTEND Internal Medicine Cardiovascular Disease
DX: R07.9 Chest pain, unspecified (principal)
CPT/HCPCS: 78452; 93017; A9500; J2785

== ENCOUNTER → 2020-02-19 | Outpatient (CLI) | payer MEDICARE, BC ==
[~2020-02-19] MED LIST changes: -REGADENOSON 0.4 MG/5 ML DISP.SYRIN. IV ONE
--- NOTE | 2020-02-19 16:08 | RAD ---
VENOUS LOWER EXTREMITY LEFT History: Reason: LEFT LEG PAIN / Spl. Instructions: / History: Comparison: None. Discussion: Multiple longitudinal and transverse high resolution real-time images of the venous system of left lower extremity were obtained with color and Doppler sampling. The common femoral, superficial femoral, popliteal and proximal calf veins are all patent and demonstrate normal flow and compressibility. Normal respiratory phasicity and augmentation is present. Impression: 1. No evidence of deep vein thrombosis. Electronically signed by: Rob Lew DO (02/19/2020 4:04 PM) [facility]
== END ==
LOC: US 15:18
PROVIDERS: ATTEND Specialist
DX: M25.562 Pain in left knee (principal); M79.605 Pain in left leg
CPT/HCPCS: 93971

== ENCOUNTER → 2020-04-16 | Outpatient (CLI) | payer MEDICARE, BC ==
--- NOTE | 2020-04-16 11:19 | RAD ---
CT MAXILLOFACIAL WITHOUT CONTRAST History: Reason: RIGHT SIDE FACIAL PAIN, HEADACHE, SINUS PRESSURE RIGHT SIDE / Spl. Instructions: / History: Comparison: Head CT November 06, 2019 Technique: Noncontrast CT imaging was performed of the sinuses. Coronal and sagittal reconstructions were performed. Exposure: One or more of the following individualized dose reduction techniques were utilized for thi s examination: 1. Automated exposure control 2. Adjustment of the mA and/or kV according to patient size 3. Use of iterative reconstruction technique. Findings: Patent frontal, ethmoid, maxillary and sphenoid sinuses. Patent ostiomeatal complexes, frontal ethmoi d recesses and sphenoid ostia. No air-fluid levels. Undulation of the nasal septum with leftward nasal septal spurring. Mastoid air cells are clear. No f racture. Left joyce bullosa. Orbits are unremarkable. Imaged intracranial contents are unremarkable. Multilevel cervical spondylos is. Impression: 1. No significant paranasal sinus disease. Patent drainage pathways. Electronically signed by: Rob Lew DO (04/16/2020 11:16 AM) [id number]
== END ==
LOC: CT 10:38
PROVIDERS: ATTEND Family Medicine
DX: J01.01 Acute recurrent maxillary sinusitis (principal); J33.0 Polyp of nasal cavity
CPT/HCPCS: 70486

== ENCOUNTER → 2020-05-19 | Outpatient (CLI) | payer MEDICARE, BC ==
--- NOTE | 2020-05-20 09:36 | RAD ---
2 views left foot without comparison for left foot pain and swelling, dog bite on the plantar surface . FINDINGS: There is no fracture, dislocation, or acute osseous abnormality identified. No radiopaque f oreign bodies are seen. No gross abnormalities of the soft tissues. No significant degenerative garland es. IMPRESSION: 1. No acute osseous abnormality and no radiographically discernible foreign bodies. Electronically signed by: Martinez Moore MD (05/20/2020 9:33 AM) [id number]
== END ==
LOC: RAD 16:35
PROVIDERS: ATTEND Specialist
DX: S91.352A Open bite, left foot, initial encounter (principal); W54.0XXA Bitten by dog, initial encounter; Y93.89 Activity, other specified; Y92.89 Other specified places as the place of occurrence of the external cause; Y99.8 Other external cause status
CPT/HCPCS: 73620

== ENCOUNTER → 2020-07-27 | Outpatient (CLI) | payer MEDICARE, BC ==
[2020-07-27 10:04] LABS: ALBUMIN 3.7 g/dL (3.4-5.0); ALBUMIN/GLOBULIN RATIO 1.1 (1.0-1.7); CALCIUM 8.9 mg/dL (8.5-10.1); CREATININE 1.2 mg/dL (0.6-1.0); GFR 44.8; POTASSIUM 3.8 mmol/L (3.5-5.1); TOTAL BILIRUBIN 0.5 mg/dL (0.2-1.0); TOTAL PROTEIN 7.2 g/dL (6.4-8.2)
== END ==
LOC: LAB 08:23
PROVIDERS: ATTEND Internal Medicine Interventional Cardiology
DX: I10 Essential (primary) hypertension (principal)
CPT/HCPCS: 36415; 80053; 80061

== ENCOUNTER → 2020-12-18 | Outpatient (CLI) | payer MEDICARE, BC ==
--- NOTE | 2020-12-18 16:27 | RAD ---
XR RIBS MIN 3 VIEWS RT W/PA CHEST Clinical indications: Reason: PLEURODYNIA, COUGHING WITH RIGHT RIGHT PAIN / Spl. Instructions: / His tory: Three-view right rib detail series: No acute right rib fracture is seen. Chest x-ray demonstrates bilateral linear linear atelectasis or scarring within the lung bases. No jasson ng consolidation or pulmonary edema or pleural effusion or pneumothorax is apparent. The heart size a nd pulmonary vasculature and mediastinum and both jerry are unremarkable. IMPRESSION: No acute right rib fracture. Bilateral linear atelectasis or scarring within the lung bases. Electronically signed by: Nick Martinez MD (12/18/2020 4:25 PM) [id number]
== END ==
LOC: RAD 09:13
PROVIDERS: ATTEND Physician Assistant
DX: R07.81 Pleurodynia (principal); R05 Cough
CPT/HCPCS: 71101